=== PATIENT | female | born 1975 | race Caucasian/White ===

== ENCOUNTER 2024-03-27 22:38 | Observation (INO) | payer OTHER ==
--- NOTE | 2024-03-27 23:50 | XRAY ---
CLINICAL HISTORY: dizziness COMPARISON: None. TECHNIQUE: Axial noncontrast CT scan of the brain was performed from the skull base to the high parietal region with coronal and sagittal reformats. One of the following dose reduction techniques were utilized for this exam: Automated exposure control, adjustment of the mA and/or kV according to patient size, use of iterative reconstruction. FINDINGS: The visualized brain parenchyma shows normal appearance. Avilez-white matter differentiation is maintained. No midline shifts or deformity. No intracerebral or extra axial hematoma. Normal size and configuration of the cerebral ventricles. Normal CT appearance of the posterior fossa structures namely the cerebellar hemispheres, brainstem and cerebellar peduncles. The cerebello-pontine angles are clear. The osseous structures in the skull base are unremarkable. No definite calvarium fractures. The scanned paranasal sinuses are clear. IMPRESSION: 1. No significant acute abnormality in plain CT brain at present. 2. Early changes of acute ischemic infarct may sometimes not be detected on a CT scan. If clinically suspicious, MRI with diffusion-weighted imaging is recommended for further evaluation. Electronically Signed by: No Cadena MD. (03/27/2024 23:47:11 EDT)
[2024-03-28 00:01] LABS: Absolute Neutrophil Ct (ANC) 7.87 x10^3/uL (1.56-6.13); BASOPHIL % 0.5 % (0.1-1.2); Basophil (Absolute #) 0.06 x10^3/uL (0.01-0.08); Eosinophil % 1.5 % (0.7-5.8); Eosinophil (Absolute #) 0.18 x10^3/uL (0.04-0.36); Hematocrit 41.7 % (34.1-44.9); Hemoglobin 13.7 g/dL (11.2-15.7); IMMATURE GRAN # 0.04 x10^3u/L (0.001-0.031); IMMATURE GRAN % 0.3 % (0.001-0.429); Lymphocyte (Absolute #) 2.63 x10^3/uL (1.18-3.74); Lymphocytes % 22.6 % (19.3-51.7); Mean Cell Volume 91.2 fL (79.4-94.8); Mean Corpuscular Hgb Concent. 32.9 g/dL (32.2-35.5); Mean Platelet Volume 10.3 fL (9.4-12.3); Monocyte (Absolute #) 0.86 x10^3/uL (0.24-0.86); Monocytes % 7.4 % (4.7-12.5); Neutrophil % 67.7 % (34.0-71.1); Platelet Count 314 x10^3/uL (182-369); Red Blood Count 4.57 x10^6/uL (3.93-5.22); Red Cell Distribution Width 14.5 % (11.7-14.4); White Blood Count 11.6 x10^3/uL (3.98-10.04)
[2024-03-28 00:16] LABS: ALBUMIN 4.3 g/dL (3.5-5.0); ANION GAP 14.3 MEQ/L (5-15); BILIRUBIN,TOTAL 0.6 mg/dL (0.2-1.3); Calcium 9.5 mg/dL (8.4-10.2); Creatinine 1 2.36 mg/dL (0.52-1.04); EST GLOMERULAR FILTRATION RATE 24.8 ML/MIN; MAGNESIUM 2.3 mg/dL (1.6-2.3); Potassium 3.2 mmol/L (3.5-5.1); Total Protein 7.2 g/dL (6.3-8.2)
[2024-03-28] MEDS ORDERED: ANTIVERT 25 MG ONE (01:27)
[2024-03-28] MEDS: ANTIVERT 25 MG PO ONE (01:28)
[2024-03-28] MEDS ORDERED: Sodium Chloride 0.9% 1000 ML 1,000 ML ONE (01:31)
[2024-03-28] MEDS ORDERED: Compazine 10 MG/2 ML ONE (01:31)
[2024-03-28] MEDS: Sodium Chloride 0.9% 1000 ML 1,000 ML IV STA (01:37)
[2024-03-28] MEDS: Compazine 10 MG/2 ML IV ONE (01:38)
--- NOTE | 2024-03-28 01:41 | ERPHSYRPT ---
- History of Present Illness Time Seen by Provider: 03/27/24 22:55 Source: patient Exam Limitations: no limitations Patient Subjective Stated Complaint: pt states she began feeling dizzy around 2200 tonight adn felt like she was going to fall down. states she has beeen fee ling unsteady for the past few days. Triage Nursing Assessment: pt alert and oriented, answers questions approp. pt tearful, cooperative. pt to room per wheelchair and transfers to stretcher per self. respirations nonlabored. skin warm and dry. pupils equal and reactive, no facial droop noted. pt moves all extremities without diff. Physician History: 49 years old female with multiple medical problems presented in the ER with complains of dizziness and getting unsteady for the last couple of hours. Patient reports she was sitting in front of fire., Stood up and started to feel wobbly with feeling as if she was going to fall down. Denies any spinning sensation but weakness all over. Denies any headache., Chest pain palpitations or shortness of breath. No abdominal pain nausea or vomiting reported. Patient reports having similar symptoms in the past but not this severe. Denies any neck pain. No visual disturbance or difficulty speech. Allergies/Adverse Reactions: diltiazem Allergy (Unknown, Verified 03/28/24 01:27) Hx Tetanus, Diphtheria Vaccination/Date Given: Yes Hx Influenza Vaccination/Date Given: No Hx Pneumococcal Vaccination/Date Given: No Immunizations Up to Date: No Travel Risk - International Travel Have you traveled outside of the country in past 3 weeks: No - Emerging Infectious Disease Are you exhibiting symptoms associated with any current EIDs: No - Review of Systems Constitutional: No Symptoms Eyes: No Symptoms Ears, Nose, & Throat: No Symptoms Respiratory: No Symptoms Cardiac: No Symptoms Abdominal/Gastrointestinal: No Symptoms Genitourinary Symptoms: No Symptoms Musculoskeletal: No Symptoms Neurological: Dizziness Psychological: Anxiety Endocrine: No Symptoms Hematologic/Lymphatic: No Symptoms - Past Medical History Cardiac History: Coronary Artery Disease, Hypertension Respiratory History: COPD, Emphysema Endocrine Medical History: Diabetes Type II Musculoskeletal History: Degenerative Disk Disease GI Medical History: Ulcer - Past Surgical History Past Surgical History: Yes Gastrointestinal: Cholecystectomy Other Surgical History: gasterctomy d/t ulcers, uterine ablation, bladder sling - Female History Hx Last Menstrual Period: ablation- approx 5+ yrs Hx Now: No - Social History Smoking Status: Current every day smoker How long have you smoked: 32 Exposure to second hand smoke: No Drug Use: marijuana - Social Determinants of Health Will the patient participate in the screening: Declined to provide - Nursing Vital Signs Nursing Vital Signs: Initial Vital Signs Temperature 97.2 F 03/27/24 22:53 Pulse Rate 71 03/27/24 22:53 Respiratory Rate 18 03/27/24 22:53 Blood Pressure 113/78 03/27/24 22:53 O2 Sat by Pulse Oximetry 97 03/27/24 22:53 Pain Scale Pain Intensity 0 - [place] Coma Scale Best Eye Response (Rakesh): (4) open spontaneously Best Verbal Response (Rakesh): (5) oriented Best Motor Response (Rakesh): (6) obeys commands Rakesh Total: 15 - Physical Exam General Appearance: no apparent distress, alert, anxiety Eye Exam: bilateral eye: normal inspection, PERRL, EOMI Ears, Nose, Throat Exam: normal ENT inspection, TMs normal, pharynx normal, moist mucous membranes Neck Exam: normal inspection, non-tender, supple, full range of motion Respiratory: normal breath sounds, lungs clear Cardiovascular: regular rate/rhythm, normal heart sounds Gastrointestinal: soft, normal bowel sounds, No tenderness Back Exam: normal inspection Extremity Exam: normal inspection, normal range of motion Mental Status: alert, oriented x 3, 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 Exam: normal hearing, normal speech, PERRL Coordination/Gait: normal finger to nose, normal cerebellar function, No normal gait Motor/Sensory: no motor deficit, no sensory deficit, no pronator drift, negative Babinski's sign DTR: bicep (R): 2+, bicep (L): 2+, knee (R): 2+, knee (L): 2+ Skin Exam: normal color SpO2 Interpretation: normal SpO2: 98 O2 Delivery: Room Air - Course EKG Interpreted by Me: RATE (55), Sinus Ck, NORMAL AXIS, NORMAL INTERVALS, NORMAL QRS Ordered Tests: Active Orders 24 hr Category Date Time Status EKG-ER Only STAT Care 03/27/24 23:36 Active IV Insertion STAT Care 03/27/24 23:36 Active Orthostatic Vital Signs STAT Care 03/27/24 23:36 Active POCT Glucose Check ONCE Care 03/27/24 23:36 Active Tele-Health Consult ROUTINE Cons 03/27/24 23:53 Active HEAD WITHOUT CONTRAST [CT] Stat Exams 03/27/24 23:26 Completed CBC W DIFF Stat Lab 03/27/24 23:31 Completed CMP Stat Lab 03/27/24 23:31 Completed MAGNESIUM Stat Lab 03/27/24 23:31 Completed UA W/RFX UR CULTURE Stat Lab 03/27/24 23:36 Ordered Medication Summary Discontinued Medications Generic Name Dose Route Start Last Admin Trade Name Dilip PRN Reason Stop Dose Admin Sodium Chloride 1,000 mls @ 999 mls/hr 03/27/24 23:36 03/28/24 01:37 Sodium Chloride 0.9% 1000 Ml IV 03/28/24 00:36 999 mls/hr .Q1H1M STA Administration Sodium Chloride Confirm 03/28/24 01:31 Sodium Chloride 0.9% 1000 Ml Administered 03/28/24 01:32 Dose 1,000 mls @ ud .ROUTE .STK-MED ONE Meclizine HCl 25 mg 03/28/24 00:24 03/28/24 01:28 Meclizine Hcl 25 Mg Tablet PO 03/28/24 00:25 25 mg STAT ONE Administration Meclizine HCl Confirm 03/28/24 01:27 Meclizine Hcl 25 Mg Tablet Administered 03/28/24 01:28 Dose 25 mg .ROUTE .STK-MED ONE Prochlorperazine Edisylate 5 mg 03/28/24 00:24 03/28/24 01:38 Prochlorperazine Edisylate 10 Mg/2 Ml Vial IV 03/28/24 00:25 5 mg STAT ONE Administration Prochlorperazine Edisylate Confirm 03/28/24 01:31 Prochlorperazine Edisylate 10 Mg/2 Ml Vial Administered 03/28/24 01:32 Dose 10 mg .ROUTE .STK-MED ONE Lab/Rad Data: Laboratory Result Diagrams 03/27/24 23:31 03/27/24 23:31 Laboratory Results 03/27/24 03/27/24 Range/Units 23:31 23:31 WBC 11.6 H (3.98-10.04) x10^3/uL RBC 4.57 (3.93-5.22) x10^6/uL Hgb 13.7 (11.2-15.7) g/dL Hct 41.7 (34.1-44.9) % MCV 91.2 (79.4-94.8) fL MCH 30.0 (25.6-32.2) pg MCHC 32.9 (32.2-35.5) g/dL RDW 14.5 H (11.7-14.4) % Plt Count 314 (182-369) x10^3/uL MPV 10.3 (9.4-12.3) fL Gran % 67.7 (34.0-71.1) % Immature Gran % (Auto) 0.3 (0.001-0.429) % Nucleat RBC Rel Count 0.0 (0.00-0.2) % Eos # (Auto) 0.18 (0.04-0.36) x10^3/uL Immature Gran # (Auto) 0.04 H (0.001-0.031) x10^3u/L Absolute Lymphs (auto) 2.63 (1.18-3.74) x10^3/uL Absolute Monos (auto) 0.86 (0.24-0.86) x10^3/uL Absolute Nucleated RBC 0.00 (0.00-0.012) x10^3u/L Lymphocytes % 22.6 (19.3-51.7) % Monocytes % 7.4 (4.7-12.5) % Eosinophils % 1.5 (0.7-5.8) % Basophils % 0.5 (0.1-1.2) % Absolute Granulocytes 7.87 H (1.56-6.13) x10^3/uL Basophils # 0.06 (0.01-0.08) x10^3/uL Sodium 140 (135-145) mmol/L Potassium 3.2 L (3.5-5.1) mmol/L Chloride 100 (98-107) mmol/L Carbon Dioxide 29 (22-30) mmol/L Anion Gap 14.3 (5-15) MEQ/L BUN 34 H (7-17) mg/dL Creatinine 2.36 H (0.52-1.04) mg/dL Estimated GFR 24.8 ML/MIN Glucose 119 H (74-106) mg/dL Calcium 9.5 (8.4-10.2) mg/dL Magnesium 2.3 (1.6-2.3) mg/dL Total Bilirubin 0.60 (0.2-1.3) mg/dL AST 26 (14-36) U/L ALT 27 (0-35) U/L Alkaline Phosphatase 120 (38-126) U/L Serum Total Protein 7.2 (6.3-8.2) g/dL Albumin 4.3 (3.5-5.0) g/dL - Progress Progress: improved, re-examined Progress Note: 03/28/24 01:44 49 years old with multiple medical problems is evaluated in the ER for sudden onset dizziness and getting wobbly. She is made stroke activated. CT head is negative for any acute findings. Prompt [facility] neurology consult is obtained who does not think patient has active neuro event but more of a labyrinthitis, recommended meclizine/Compazine along with fluids. Recommended CTAs head and neck to rule out major vessel occlusions and if negative patient can be discharged home safely. Her baseline workup showed normal white count, chemistries with a creatinine of 2.3, no previous comparison available here but 1 done out side showed a creatinine of 0.7 last year. Chest x-ray is negative for any acute cardiopulmonary findings reviewed by me, official report is pending. Patient has never been to this hospital before. I believe part of patient's symptoms are secondary to acute renal failure. She does take diuretics as well. Orthostatics are negative. Patient cannot have CTA with low GFR. Patient discussed with Dr. Esther miller, reviewed history, workup, agreed with admission, IV hydration and if kidney functions improve can have CTA done tomorrow and if not and patient is still symptomatic can have MRI. I have shared the results of workup with patient and family and plan of admission which they understand and agree. 03/28/24 01:46 Counseled pt/family regarding: lab results, diagnosis, need for follow-up, rad results Medical Desision Making - Independent Historian Additional History obtained from: Spouse - Discussion of managment Care discussed with:: specialist ( hospitalist and Dr. Dutton neurology) Reviewed:: Test results, Need for additional workup Agreed on:: Treatment plan, place in obs Will see patient: in hospital - Diagnostic Testing Diagnostic test were ordered, analyzed, and reviewed by me: Yes Radiological Interpretation: Interpreted by me, Reviewed by me - Risk of complications The pt has a mod risk of morbidity or mortality based on: Need for prescription drug management The pt has a high risk of morbidity or mortality based on: Decision regarding hospitilization or escalation of hosp level of care - Departure Departure Disposition: Observation Clinical Impression: Dizziness, Acute renal failure Condition: Stable Critical Care Time: No Referrals: DOCTOR,NO FAMILY [Primary Care Provider] - Follow up/PCP as directed
[2024-03-28 02:47] LABS: Appearance Clear (Clear); Bilirubin Negative (Negative); Blood Negative (Negative); Epithelial Cells Few /HPF (None Seen); Glucose, Urine Negative (Negative); Ketones Negative (Negative); Leukocyte Esterase Small (Negative); Nitrite Negative (Negative); Ph 5.5 (4.6-8.0); Protein,Urine Dip Trace (Negative); RBC 0-2 /HPF (0-5); Specific Gravity 1.015 (1.005-1.030); Urobilinogen 0.2 mg/dL (0.2)
[2024-03-28 02:57] LABS: Bacteria Few /HPF (None Seen)
[2024-03-28] MEDS ORDERED: TYLENOL 325 MG PO PRN (03:31)
[2024-03-28] MEDS ORDERED: ANTIVERT 25 MG PO PRN (03:33)
[2024-03-28] MEDS: Sodium Chloride 0.9% 1000 ML 1,000 ML IV SCH (03:55)
[2024-03-28 06:03] LABS: ANION GAP 13.7 MEQ/L (5-15); Calcium 8.8 mg/dL (8.4-10.2); Creatinine 1 2.08 mg/dL (0.52-1.04); EST GLOMERULAR FILTRATION RATE 28.9 ML/MIN; Potassium 3.3 mmol/L (3.5-5.1)
--- NOTE | 2024-03-28 06:31 | PCM.HP ---
History of Present Illness - Chief Complaint Chief Complaint: vertigo Date: 03/28/24 History of Present Illness: is a 49 year old female with h/o HTN, back pain, and chronic angina, who presents with dizziness and vertigo. Patient noted sudden onset Sunday ev ening of severe dizziness and "wobbling" upon sitting up, "like I'm really drunk" without drinking anything. Associated with vertigo and nausea, worse with position. Denies dysarthria, diplopia, or ataxic gait. Denies ear fullness or hearing changes, or recent URI symptoms. No fever or headache. No history of renal disease. - Review of Systems All Other Systems: Reviewed and Negative Medications & Allergies Home Medications: Home Medication List Aspirin EC 81 mg [Ecotrin 81 mg] 81 mg PO DAILY 03/28/24 [History Confirmed 03/28/24] Atorvastatin Calcium [Lipitor] 80 mg PO DAILY 03/28/24 [History Confirmed 03/28/24] Budesonide/Formoterol Fumarate [Budesonide-Formoterol 160-4.5] 1 inh IH BID 03/28/24 [History Confirmed 03/28/24] Buspirone HCl 5 mg [Buspar 5 mg] 5 mg PO TID 03/28/24 [History Confirmed 03/28/24] Cyclobenzaprine HCl 5 mg PO TIDPRN PRN 03/28/24 [History Confirmed 03/28/24] Furosemide 40 mg [Lasix 40 MG] 40 mg PO BID 03/28/24 [History Confirmed 03/28/24] Isosorbide Mononitrate 60 mg [Imdur 60MG] 120 mg PO DAILY 03/28/24 [History Confirmed 03/28/24] Losartan/Hydrochlorothiazide [Losartan-Hctz 100-12.5 mg Tab] 1 each PO DAILY 03/28/24 [History Confirmed 03/28/24] Metoprolol Succinate 25 mg Xl* [Toprol-Xl 25MG Tablets] 25 mg PO DAILY 03/28/24 [History Confirmed 03/28/24] Mirtazapine 15 mg PO HS 03/28/24 [History Confirmed 03/28/24] Nitroglycerin 0.4 mg Tablet [Nitrostat 0.4 MG Tablet] 0.4 mg SL UD PRN 03/28/24 [History Confirmed 03/28/24] PANTOPRAZOLE 40 mg Tablet [Protonix 40MG Tablet] 40 mg PO QAM 03/28/24 [History Confirmed 03/28/24] Prazosin HCl 1 mg PO HS 03/28/24 [History Confirmed 03/28/24] Pregabalin [Lyrica 150Mg] 150 mg PO BID 03/28/24 [History Confirmed 03/28/24] Ranolazine [Ranolazine ER] 1,000 mg PO BID 03/28/24 [History Confirmed 03/28/24] Semaglutide [Ozempic] 0.5 mg SQ WEEKLY 03/28/24 [History Confirmed 03/28/24] buPROPion HCL [Bupropion Xl] 300 mg PO DAILY 03/28/24 [History Confirmed 03/28/24] Allergies/Adverse Reactions: Allergies Allergy/AdvReac Type Severity Reaction Status Date / Time diltiazem Allergy Unknown Verified 03/28/24 01:27 - Past Medical History Past Medical History: Yes Neurological History: TIA ENT History: No Pertinent History Cardiac History: Coronary Artery Disease, Hypertension Respiratory History: Asthma, Bronchitis, COPD, Emphysema Endocrine Medical History: Diabetes Type II Musculoskelatal History: Degenerative Disk Disease, Other GI Medical History: Ulcer History: No Pertinent History Pyscho-Social History: Anxiety, Depression Reproductive Disorders: Endometriosis Comment: carpal tunnel bilateral wrists - Female History Are you now?: No - Past Surgical History Past Surgical History: Yes Neuro Surgical History: No Pertinent History Cardiac History: Cardiac Catheterization Respiratory Surgery: No Pertinent History GI Surgical History: Cholecystectomy Genitourinary Surgical Hx: Other Musculskeletal Surgical Hx: No Pertinent History Female Surgical History: No Pertinent History Other Surgical History: gasterctomy d/t ulcers, uterine ablation, bladder sling - Social History Smoking Status: Current every day smoker How long have you smoked: 32 years Exposure to second hand smoke: No Alcohol: None, Rarely Drug Use: marijuana - Social Determinants of Health Will the patient participate in the screening: Yes Do you worry about a steady place to live?: No Do you have any problems with any of the following?: No known problems In the past 12 months,have you had to go without utilities?: No Have you or anyone in your house had to go without enough: No Transportation Issues: No Has anyone in your support network made you feel unsafe?: No Does the patient want assistance with any of the above?: No - Physical Exam Vital Signs: Vital Signs - 24 hr Temp Pulse Resp BP BP Pulse Ox 03/28/24 02:16 97.4 F 64 18 109/56 95 03/28/24 01:48 98 03/28/24 01:09 60 16 112/77 98 03/28/24 01:07 122/81 96 03/28/24 01:06 64 112/71 97 03/28/24 01:00 58 L 92/64 97 03/28/24 00:30 67 18 94/66 96 03/27/24 22:53 97.2 F 71 18 113/78 97 General Appearance: no apparent distress Neurologic Exam: alert, oriented x 3, No sensation nml, No facial droop, No aphasia, No dysarthria, No abnormal gait Respiratory Exam: normal breath sounds, No respiratory distress, No accessory muscle use Cardiovascular Exam: regular rate/rhythm, normal heart sounds, No edema Gastrointestinal/Abdomen Exam: No tenderness, No distention Results - Labs Lab/Micro Results: Lab Results-Last 24 Hours 03/27/24 03/27/24 03/28/24 Range/Units 23:31 23:31 01:59 WBC 11.6 H (3.98-10.04) x10^3/uL RBC 4.57 (3.93-5.22) x10^6/uL Hgb 13.7 (11.2-15.7) g/dL Hct 41.7 (34.1-44.9) % MCV 91.2 (79.4-94.8) fL MCH 30.0 (25.6-32.2) pg MCHC 32.9 (32.2-35.5) g/dL RDW 14.5 H (11.7-14.4) % Plt Count 314 (182-369) x10^3/uL MPV 10.3 (9.4-12.3) fL Gran % 67.7 (34.0-71.1) % Immature Gran % (Auto) 0.3 (0.001-0.429) % Nucleat RBC Rel Count 0.0 (0.00-0.2) % Eos # (Auto) 0.18 (0.04-0.36) x10^3/uL Immature Gran # (Auto) 0.04 H (0.001-0.031) x10^3u/L Absolute Lymphs (auto) 2.63 (1.18-3.74) x10^3/uL Absolute Monos (auto) 0.86 (0.24-0.86) x10^3/uL Absolute Nucleated RBC 0.00 (0.00-0.012) x10^3u/L Lymphocytes % 22.6 (19.3-51.7) % Monocytes % 7.4 (4.7-12.5) % Eosinophils % 1.5 (0.7-5.8) % Basophils % 0.5 (0.1-1.2) % Absolute Granulocytes 7.87 H (1.56-6.13) x10^3/uL Basophils # 0.06 (0.01-0.08) x10^3/uL Sodium 140 (135-145) mmol/L Potassium 3.2 L (3.5-5.1) mmol/L Chloride 100 (98-107) mmol/L Carbon Dioxide 29 (22-30) mmol/L Anion Gap 14.3 (5-15) MEQ/L BUN 34 H (7-17) mg/dL Creatinine 2.36 H (0.52-1.04) mg/dL Estimated GFR 24.8 ML/MIN Glucose 119 H (74-106) mg/dL Calcium 9.5 (8.4-10.2) mg/dL Magnesium 2.3 (1.6-2.3) mg/dL Total Bilirubin 0.60 (0.2-1.3) mg/dL AST 26 (14-36) U/L ALT 27 (0-35) U/L Alkaline Phosphatase 120 (38-126) U/L Serum Total Protein 7.2 (6.3-8.2) g/dL Albumin 4.3 (3.5-5.0) g/dL Urine Color Yellow (Yellow) Urine Appearance Clear (Clear) Urine pH 5.5 (4.6-8.0) Ur Specific [place] 1.015 (1.005-1.030) Urine Protein Trace A (Negative) Urine Glucose (UA) Negative (Negative) mg/dL Urine Ketones Negative (Negative) Urine Blood Negative (Negative) Urine Nitrite Negative (Negative) Urine Bilirubin Negative (Negative) Urine Urobilinogen 0.2 (0.2) mg/dL Ur Leukocyte Esterase Small A (Negative) U Hyaline Cast (Auto) 11-20 (0-2) /LPF Urine Microscopic RBC 0-2 (0-5) /HPF Urine Microscopic WBC 6-10 A (0-5) /HPF Ur Epithelial Cells Few (None Seen) /HPF Urine Bacteria Few A (None Seen) /HPF Urine Culture Reflexed YES (NO) 03/28/24 Range/Units 05:04 WBC (3.98-10.04) x10^3/uL RBC (3.93-5.22) x10^6/uL Hgb (11.2-15.7) g/dL Hct (34.1-44.9) % MCV (79.4-94.8) fL MCH (25.6-32.2) pg MCHC (32.2-35.5) g/dL RDW (11.7-14.4) % Plt Count (182-369) x10^3/uL MPV (9.4-12.3) fL Gran % (34.0-71.1) % Immature Gran % (Auto) (0.001-0.429) % Nucleat RBC Rel Count (0.00-0.2) % Eos # (Auto) (0.04-0.36) x10^3/uL Immature Gran # (Auto) (0.001-0.031) x10^3u/L Absolute Lymphs (auto) (1.18-3.74) x10^3/uL Absolute Monos (auto) (0.24-0.86) x10^3/uL Absolute Nucleated RBC (0.00-0.012) x10^3u/L Lymphocytes % (19.3-51.7) % Monocytes % (4.7-12.5) % Eosinophils % (0.7-5.8) % Basophils % (0.1-1.2) % Absolute Granulocytes (1.56-6.13) x10^3/uL Basophils # (0.01-0.08) x10^3/uL Sodium 140 (135-145) mmol/L Potassium 3.3 L (3.5-5.1) mmol/L Chloride 101 (98-107) mmol/L Carbon Dioxide 29 (22-30) mmol/L Anion Gap 13.7 (5-15) MEQ/L BUN 36 H (7-17) mg/dL Creatinine 2.08 H (0.52-1.04) mg/dL Estimated GFR 28.9 ML/MIN Glucose 64 L (74-106) mg/dL Calcium 8.8 (8.4-10.2) mg/dL Magnesium (1.6-2.3) mg/dL Total Bilirubin (0.2-1.3) mg/dL AST (14-36) U/L ALT (0-35) U/L Alkaline Phosphatase (38-126) U/L Serum Total Protein (6.3-8.2) g/dL Albumin (3.5-5.0) g/dL Urine Color (Yellow) Urine Appearance (Clear) Urine pH (4.6-8.0) Ur Specific [place] (1.005-1.030) Urine Protein (Negative) Urine Glucose (UA) (Negative) mg/dL Urine Ketones (Negative) Urine Blood (Negative) Urine Nitrite (Negative) Urine Bilirubin (Negative) Urine Urobilinogen (0.2) mg/dL Ur Leukocyte Esterase (Negative) U Hyaline Cast (Auto) (0-2) /LPF Urine Microscopic RBC (0-5) /HPF Urine Microscopic WBC (0-5) /HPF Ur Epithelial Cells (None Seen) /HPF Urine Bacteria (None Seen) /HPF Urine Culture Reflexed (NO) - Radiology Impressions Radiology Exams & Impressions: Radiology Procedures Category Date Time Status CHEST 1 VIEW (PORTABLE) Stat Exams 03/27/24 00:11 Taken HEAD WITHOUT CONTRAST [CT] Stat Exams 03/27/24 23:26 Completed CXR reviewed - no infiltrate, effusion, or edema CT Head - no acute abnormality - Other Procedures and Tests Respiratory Therapy 03/28/24 05:54 Respiratory MDI BID Assessment/Plan (1) Acute renal failure Current Visit: Yes Status: Acute Assessment & Plan: 49 y/o F with h/o HTN, chronic angina, and depression, here with vertigo, found to have impaired renal function. ## Acute vs chronic kidney disease - noted on admission labs to have Cr 2.4. No prior labs available here, and no known h/o renal disease per patient. - given IV fluids in ED - continue NS at 100 ml/hr - repeat BMP in AM - reaching out to [facility] for patient's prior records to see baseline Cr - hold home losartan-HCTZ and lasix until establish baseline renal function. ## Vertigo - neurology consulted, feels likely to be peripheral cause, given positional nature, lack of [employer] signs. Neuro recommended CTA head & neck to rule out vertebrobasilar insufficiency, but unable to do so with her renal function. Acute onset and positional nature are consistent with BPPV as cause, although cannot exclude labyrinthitis - PRN meclizine - if after fluids, Cr improves, can obtain CTA - if CTA negative, neuro recommended ENT evaluation - PT referral for Louise maneuvers - if unable to get CTA, consider MRI/MRA to r/o vertebro-basilar insufficiency ## Hypertension - BP controlled. - hold home losartan-HCTZ and Lasix due to renal insufficency ## Chronic angina - currently controlled. - continue home Ranexa 1000 BID, Imdur 60 daily, Toprol XL 25, Atorvastatin 80 ## depression - continue home Buproprion XL 300 daily, Remeron 15 qHS, and Buspar 5 TID Code status: Full code Prophylaxis: Heparin SQ Dispo: Place in observation, expect discharge to home Telemedicine Encounter - Telemedicine Encounter Telemedicine Encounter: "The entirety of this encounter was performed via Telemedicine" This visit was performed using real-time audio and video connection between my location and thepatients locationwith the assistance of a surrogateat the patients location. Written or verbal consent was obtained from the patient/guardian to perform this visit usingADAPTIXcine technology. Any patient questions regarding the telemedicine interaction were answered.
[2024-03-28] MEDS ORDERED: Cyclobenzaprine 10 MG PO PRN (07:12)
[2024-03-28] MEDS: Advair Hfa 115/21 Common canister IH SCH (07:24)
[2024-03-28] MEDS ORDERED: MEDICATION INTERVENTION MC SCH (07:30)
--- NOTE | 2024-03-28 08:38 | XRAY ---
Indication: Dizziness. Comparison: None Portable chest hyperinflated and clear. Heart not enlarged. Bony thorax intact. Impression: Nonacute hyperinflated chest.
[2024-03-28] MEDS ORDERED: NON-FORMULARY ITEM (Budesonide/Formoterol Fumarate [Budesonide-Formoterol 160-4.5] 10.2 GM IH SCH (10:00)
[2024-03-28] MEDS: HEPARIN 5000 UNITS/0.5 ML (HIGH RISK MED) SQ SCH (10:12)
[2024-03-28] MEDS: ROCEPHIN 1 GM / 100 ML NaCl 1 GM/100 ML IVPB IV SCH (10:12)
[2024-03-28] MEDS: ZOCOR 20MG PO SCH (10:13)
[2024-03-28] MEDS: BUSPAR 5 MG PO SCH (10:13)
[2024-03-28] MEDS: Protonix 40MG Tablet PO SCH (10:13)
[2024-03-28] MEDS: ECOTRIN 81 MG PO SCH (10:13)
[2024-03-28] MEDS: Toprol-Xl 25MG Tablets PO SCH (10:13)
[2024-03-28] MEDS: Ranexa 500 MG PO SCH (10:13)
[2024-03-28] MEDS: LYRICA 150MG PO SCH (10:13)
[2024-03-28] MEDS: Imdur 60MG PO SCH (10:13)
[2024-03-28] MEDS: Klor Con PO SCH (10:13)
[2024-03-28] MEDS: Wellbutrin XL 150 MG PO SCH (10:14)
[2024-03-28 13:34] LABS: Potassium 3.5 mmol/L (3.5-5.1)
[2024-03-28] MEDS ORDERED: NON-FORMULARY ITEM (Prazosin Hcl [Prazosin Hcl] 1 MG Capsule) PO SCH (22:00)
[2024-03-28] MEDS: MIRTAZAPINE PO SCH (22:52)
[2024-03-29 04:05] VITALS: PULSE 67
[2024-03-29 07:09] VITALS: BP 108/54; RESP 19; TEMP 97.1
[2024-03-29 07:36] LABS: Hematocrit 34.5 % (34.1-44.9); Hemoglobin 11.4 g/dL (11.2-15.7); Mean Cell Volume 92.5 fL (79.4-94.8); Mean Corpuscular Hemoglobin 30.6 pg (25.6-32.2); Mean Platelet Volume 10.9 fL (9.4-12.3); Platelet Count 286 x10^3/uL (182-369); Red Blood Count 3.73 x10^6/uL (3.93-5.22); Red Cell Distribution Width 14.8 % (11.7-14.4); White Blood Count 6.8 x10^3/uL (3.98-10.04)
[2024-03-29 07:43] LABS: ANION GAP 10.9 MEQ/L (5-15); BILIRUBIN,TOTAL 0.3 mg/dL (0.2-1.3); Calcium 8.5 mg/dL (8.4-10.2); Creatinine 1 1.1 mg/dL (0.52-1.04); Potassium 4.5 mmol/L (3.5-5.1); Total Protein 5.5 g/dL (6.3-8.2)
[2024-03-29 08:29] VITALS: O2SAT 97
--- NOTE | 2024-03-29 09:11 | PCM.DS ---
Discharge Summary Date of Admission: 03/28/24 02:08 Date of Discharge: 03/29/24 Admitting Physician: MATT ROLON MD Consults: Consults on Case 03/27/24 23:53 Tele-Health Consult ROUTINE Primary Care Provider: NO FAMILY DOCTOR Allergies Allergies diltiazem Allergy (Unknown, Verified 03/28/24 01:27) Hospital Summary - Hospital Course Hospital Course: 03/29/24 is a 49 year old female with h/o TIA, CAD, HTN, Asthma, Bronchitis, COPD, emphysema, type II DM, DJD, chronic back pain, anxiety, depression, carpal tunnel, and chronic angina. She presented on 03/28/24 to the ER with dizziness and vertigo. Patient noted sudden onset Sunday evening of severe dizziness and "wobbling" upon sitting up, "like I'm really drunk" without drinking anything. Associated with vertigo and nausea, worse with position. Denied dysarthria, diplopia, or ataxic gait. Denies ear fullness or hearing changes, or recent URI symptoms. No fever or headache. No history of renal disease. Pt was started on IVF and IV antibiotics for a UTI. Antibiotics stopped today as UC negative. MAGNUS improved with IV fluids. Pt admits to not eating and drinking well at home d/t taking Ozempic. Educated pt on the importance of eating small meals throughout the days and drinking plenty of water to stay hydrated. Hypokalemia resolved. She states she feels better and wants to leave today as her daughter has birthday republican she would like to attend. She denies any further concerns at this time. Advised she will need to f/u OP with PCP for repeat labs. - Vitals & Intake/Output Vital Signs: Vital Signs Temperature 97.1 F 03/29/24 07:08 Pulse Rate 67 03/29/24 08:28 Respiratory Rate 19 03/29/24 08:28 Blood Pressure 108/54 03/29/24 07:08 O2 Sat by Pulse Oximetry 97 03/29/24 08:28 Intake & Output: Intake & Output 03/26/24 03/27/24 03/28/24 03/29/24 11:59 11:59 11:59 11:59 Intake Total 480 3820 Balance 480 3820 Weight 97.4 kg - Lab Result Diagrams: 03/29/24 05:15 10/12/24 05:15 Lab Results-Last 24 Hrs: Lab Results-Last 24 Hours 03/28/24 03/29/24 03/29/24 Range/Units 13:20 05:15 05:15 WBC 6.8 (3.98-10.04) x10^3/uL RBC 3.73 L (3.93-5.22) x10^6/uL Hgb 11.4 (11.2-15.7) g/dL Hct 34.5 (34.1-44.9) % MCV 92.5 (79.4-94.8) fL MCH 30.6 (25.6-32.2) pg MCHC 33.0 (32.2-35.5) g/dL RDW 14.8 H (11.7-14.4) % Plt Count 286 (182-369) x10^3/uL MPV 10.9 (9.4-12.3) fL Sodium (135-145) mmol/L Potassium 3.5 (3.5-5.1) mmol/L Chloride (98-107) mmol/L Carbon Dioxide (22-30) mmol/L Anion Gap (5-15) MEQ/L BUN (7-17) mg/dL Creatinine (0.52-1.04) mg/dL Estimated GFR ML/MIN Glucose (74-106) mg/dL Calcium (8.4-10.2) mg/dL Magnesium 2.0 2.2 (1.6-2.3) mg/dL Total Bilirubin (0.2-1.3) mg/dL AST (14-36) U/L ALT (0-35) U/L Alkaline Phosphatase (38-126) U/L Serum Total Protein (6.3-8.2) g/dL Albumin (3.5-5.0) g/dL 03/29/24 Range/Units 05:15 WBC (3.98-10.04) x10^3/uL RBC (3.93-5.22) x10^6/uL Hgb (11.2-15.7) g/dL Hct (34.1-44.9) % MCV (79.4-94.8) fL MCH (25.6-32.2) pg MCHC (32.2-35.5) g/dL RDW (11.7-14.4) % Plt Count (182-369) x10^3/uL MPV (9.4-12.3) fL Sodium 143 (135-145) mmol/L Potassium 4.5 D (3.5-5.1) mmol/L Chloride 111 H (98-107) mmol/L Carbon Dioxide 25 (22-30) mmol/L Anion Gap 10.9 (5-15) MEQ/L BUN 25 H (7-17) mg/dL Creatinine 1.10 H (0.52-1.04) mg/dL Estimated GFR 62.0 ML/MIN Glucose 91 (74-106) mg/dL Calcium 8.5 (8.4-10.2) mg/dL Magnesium (1.6-2.3) mg/dL Total Bilirubin 0.30 (0.2-1.3) mg/dL AST 18 (14-36) U/L ALT 18 (0-35) U/L Alkaline Phosphatase 98 (38-126) U/L Serum Total Protein 5.5 L (6.3-8.2) g/dL Albumin 3.0 L (3.5-5.0) g/dL Micro Results-Entire Visit: Microbiology 03/28/24 01:59 Urine Culture - Final Urine, Void <10K NORMAL SKIN HARRIETT PROBABLE SKIN CONTAMINANT - Radiology Exams Ordered Rad Exams-Entire Visit: Radiology Procedures Category Date Time Status HEAD WITHOUT CONTRAST [CT] Stat Exams 03/27/24 23:26 Completed - Procedures and Test Procedures and Tests throughout Hospitalization: Therapy Orders & Screens 03/28/24 03:10 RT Screen per Nursing Assess ONCE Comment: Protocol Order Physician Instructions: Greater than 3 points order RT Admission Screen Reason For Exam: Triggered on Admission Diagnosis: acute renal failure, dizziness Diagnosis: acute renal failure, dizziness Pneumonia: No Home O2: No Asthma: Yes CHF: No Home CPAP/BIPAP: No Home Nebs/MDI: Yes Total Points: 9 Smoking Cessation Education ONCE Comment: Diagnosis: acute renal failure, dizziness Smoking Status: Current every day smoker How long have you smoked: 32 years Approximately how many cigarettes per day: 8-10 cigarettes/day Do you dip or chew tobacco: No 03/28/24 05:54 Respiratory MDI BID Comment: Diagnosis: acute renal failure, dizziness 03/28/24 07:27 Respiratory Therapy Assessment DAILY Comment: Diagnosis: vertigo Discharge Exam General Appearance: no apparent distress, alert, obese Neurologic Exam: alert, oriented x 3, cooperative, normal mood/affect, nml cerebellar function, sensation nml, No motor deficits Eye Exam: PERRL, EOMI, eyes nml inspection Ears, Nose, Throat Exam: normal ENT inspection, pharynx normal, moist mucous mem branes Neck Exam: normal inspection, non-tender, supple, full range of motion Respiratory Exam: normal breath sounds, lungs clear, No respiratory distress Cardiovascular Exam: regular rate/rhythm, normal heart sounds Gastrointestinal/Abdomen Exam: soft, No tenderness, No mass Pelvic Exam: deferred Rectal Exam: deferred Back Exam: normal inspection, normal range of motion, No CVA tenderness, No vertebral tenderness Extremity Exam: normal inspection, normal range of motion Skin Exam: normal color, warm, dry Final Diagnosis/Problem List - Final Discharge Diagnosis/Problem (1) Acute renal failure Current Visit: Yes Status: Acute Assessment & Plan: - 2:2 Ozempic and not eating/ drinking well- education provided - IVF - Creat 1.10- improved since admission- unknown baseline. (2) Dizziness Current Visit: Yes Status: Resolved Assessment & Plan: - Resolved since admission - IVF - 2:2 dehydration Code(s): R42 - DIZZINESS AND GIDDINESS (3) Obesity (BMI 30-39.9) Current Visit: Yes Status: Chronic Assessment & Plan: - Advised ADA diet and exercise control. Code(s): E66.9 - OBESITY, UNSPECIFIED (4) HTN (hypertension) Current Visit: Yes Status: Chronic Assessment & Plan: - BP controlled - Continue home meds Code(s): I10 - ESSENTIAL (PRIMARY) HYPERTENSION (5) Anxiety and depression Current Visit: Yes Status: Chronic Assessment & Plan: - Continue home meds Code(s): F41.9 - ANXIETY DISORDER, UNSPECIFIED; F32.A - DEPRESSION, UNSPECIFIED (6) Hyperlipidemia Current Visit: Yes Status: Chronic Assessment & Plan: - continue statin Code(s): E78.5 - HYPERLIPIDEMIA, UNSPECIFIED (7) GERD (gastroesophageal reflux disease) Current Visit: Yes Status: Chronic Assessment & Plan: - Continue Protonix Code(s): K21.9 - GASTRO-ESOPHAGEAL REFLUX DISEASE WITHOUT ESOPHAGITIS (8) Type II diabetes mellitus Current Visit: Yes Status: Chronic Assessment & Plan: - Ozempic held IP - Advised to eat small meals throughout the day and drink plenety of water to prevent dehydration. - No current A1C to review - F/U with PCP OP (9) UTI (urinary tract infection) Current Visit: Yes Status: Resolved Assessment & Plan: - UC negative- probable skin contaminant - IV antibiotics stopped. - Pt reports no sxs. Code(s): N39.0 - URINARY TRACT INFECTION, SITE NOT SPECIFIED - Discharge Discharge Date: 03/29/24 Disposition: Home, Self-Care Condition: Stable Prescriptions: Continue Prazosin HCl 1 mg PO HS Mirtazapine 15 mg PO HS Semaglutide [Ozempic] 0.5 mg SQ WEEKLY buPROPion HCL [Bupropion Xl] 300 mg PO DAILY Isosorbide Mononitrate 60 mg [Imdur 60MG] 120 mg PO DAILY Nitroglycerin 0.4 mg Tablet [Nitrostat 0.4 MG Tablet] 0.4 mg SL UD PRN PRN Reason: Chest Pain Buspirone HCl 5 mg [Buspar 5 mg] 5 mg PO TID Aspirin EC 81 mg [Ecotrin 81 mg] 81 mg PO DAILY Pregabalin [Lyrica 150Mg] 150 mg PO BID PANTOPRAZOLE 40 mg Tablet [Protonix 40MG Tablet] 40 mg PO QAM Furosemide 40 mg [Lasix 40 MG] 40 mg PO BID Cyclobenzaprine HCl 5 mg PO TIDPRN PRN PRN Reason: Muscle Spasms/Pain Metoprolol Succinate 25 mg Xl* [Toprol-Xl 25MG Tablets] 25 mg PO DAILY Atorvastatin Calcium [Lipitor] 80 mg PO DAILY Ranolazine [Ranolazine ER] 1,000 mg PO BID Losartan/Hydrochlorothiazide [Losartan-Hctz 100-12.5 mg Tab] 1 each PO DAILY Budesonide/Formoterol Fumarate [Budesonide-Formoterol 160-4.5] 1 inh IH BID Instructions: Why Water Is Important to Health, Dehydration, Adult ED Follow up with: DOCTOR,NO FAMILY [Primary Care Provider] -
== END 2024-03-29 09:59 | disposition home or self-care (01) ==
LOC: ED 22:38 → MED SURG 03-28 02:08
PROVIDERS: ADMIT Internal Medicine; ATTEND Internal Medicine
DX: N17.9 Acute kidney failure, unspecified (principal); I10 Essential (primary) hypertension; R42 Dizziness and giddiness; I25.10 Atherosclerotic heart disease of native coronary artery without angina pectoris; J44.9 Chronic obstructive pulmonary disease, unspecified; E11.9 Type 2 diabetes mellitus without complications; F17.200 Nicotine dependence, unspecified, uncomplicated; R26.2 Difficulty in walking, not elsewhere classified; R11.0 Nausea; D64.9 Anemia, unspecified; E66.9 Obesity, unspecified; F41.9 Anxiety disorder, unspecified; F32.A Depression, unspecified; E78.5 Hyperlipidemia, unspecified; K21.9 Gastro-esophageal reflux disease without esophagitis; N39.0 Urinary tract infection, site not specified; Z79.899 Other long term (current) drug therapy
CPT/HCPCS: 36000; 36415; 70450; 71045; 80048; 80053; 81001; 83735; 84132; 85025; 85027; 87086; 93005; 94640; 94760; 96374; 99284; G0378; Q3014; J0696; J1644; A9270-GY

== ENCOUNTER 2024-04-21 11:19 | Emergency (ER) | payer OTHER ==
--- NOTE | 2024-04-21 11:38 | ERPHSYRPT ---
- History of Present Illness Time Seen by Provider: 04/21/24 11:38 Source: patient Exam Limitations: no limitations Physician History: This is an obese 49-year-old white female patient who presents to the emergency department with right flank pain that came on suddenly yesterday. The pain persisted this morning. The patient denies chest pain. She denies abdominal pain. She denies shortness of breath. She has not had a fever. She denies urgency, frequency and dysuria. Patient is diabetic, has a history of gastroesophageal reflux disease, anxiety/depression, hyperlipidemia and hypertension. Patient states she has a history of renal failure. On 03/29/2024 the patient's GFR was approximately 62 Timing/Duration: yesterday Method of Injury: other (No injury) Quality: aching (Right flank) Severity of Pain-Max: mild (To moderate) Severity of Pain-Current: mild (To moderate) Modifying Factors: Improves With: nothing Associated Symptoms: denies symptoms Previous symptoms: no prior history, no recent treatment Allergies/Adverse Reactions: diltiazem Allergy (Unknown, Verified 04/21/24 12:19) Home Medications: Aspirin EC 81 mg [Ecotrin 81 mg] 81 mg PO DAILY 03/28/24 [History] Atorvastatin Calcium [Lipitor] 80 mg PO DAILY 03/28/24 [History] Budesonide/Formoterol Fumarate [Budesonide-Formoterol 160-4.5] 1 inh IH BID 03/28/24 [History] Buspirone HCl 5 mg [Buspar 5 mg] 5 mg PO TID 03/28/24 [History] Cyclobenzaprine HCl 5 mg PO TIDPRN PRN 03/28/24 [History] Furosemide 40 mg [Lasix 40 MG] 40 mg PO BID 03/28/24 [History] Isosorbide Mononitrate 60 mg [Imdur 60MG] 120 mg PO DAILY 03/28/24 [History] Losartan/Hydrochlorothiazide [Losartan-Hctz 100-12.5 mg Tab] 1 each PO DAILY 03/28/24 [History] Metoprolol Succinate 25 mg Xl* [Toprol-Xl 25MG Tablets] 25 mg PO DAILY 03/28/24 [History] Mirtazapine 15 mg PO HS 03/28/24 [History] Nitroglycerin 0.4 mg Tablet [Nitrostat 0.4 MG Tablet] 0.4 mg SL UD PRN 03/28/24 [History] PANTOPRAZOLE 40 mg Tablet [Protonix 40MG Tablet] 40 mg PO QAM 03/28/24 [History] Prazosin HCl 1 mg PO HS 03/28/24 [History] Pregabalin [Lyrica 150Mg] 150 mg PO BID 03/28/24 [History] Ranolazine [Ranolazine ER] 1,000 mg PO BID 03/28/24 [History] Semaglutide [Ozempic] 0.5 mg SQ WEEKLY 03/28/24 [History] buPROPion HCL [Bupropion Xl] 300 mg PO DAILY 03/28/24 [History] Hx Tetanus, Diphtheria Vaccination/Date Given: Yes Hx Influenza Vaccination/Date Given: No Hx Pneumococcal Vaccination/Date Given: No Travel Risk - International Travel Have you traveled outside of the country in past 3 weeks: No - Emerging Infectious Disease Are you exhibiting symptoms associated with any current EIDs: No - Review of Systems Constitutional: No Symptoms Eyes: No Symptoms Ears, Nose, & Throat: No Symptoms Respiratory: No Symptoms Cardiac: No Symptoms Abdominal/Gastrointestinal: No Symptoms Genitourinary Symptoms: Flank Pain (Right flank pain) Musculoskeletal: No Symptoms Skin: No Symptoms Neurological: No Symptoms Psychological: No Symptoms Endocrine: No Symptoms Hematologic/Lymphatic: No Symptoms Immunological/Allergic: No Symptoms All Other Systems: Reviewed and Negative - Past Medical History Pertinent Past Medical History: Yes Neurological History: TIA ENT History: No Pertinent History Cardiac History: Coronary Artery Disease, Hypertension Respiratory History: Asthma, Bronchitis, COPD, Emphysema Endocrine Medical History: Diabetes Type II Musculoskeletal History: Degenerative Disk Disease, Other GI Medical History: Ulcer History: No Pertinent History Psycho-Social History: Anxiety, Depression Female Reproductive Disorders: Endometriosis Other Medical History: carpal tunnel bilateral wrists - Past Surgical History Past Surgical History: Yes Neuro Surgical History: No Pertinent History Cardiac: Cardiac Catheterization Respiratory: No Pertinent History Gastrointestinal: Cholecystectomy Genitourinary: Other Musculoskeletal: No Pertinent History Female Surgical History: No Pertinent History Other Surgical History: gasterctomy d/t ulcers, uterine ablation, bladder sling - Female History Hx Last Menstrual Period: ablation- approx 5+ yrs - Social History Smoking Status: Current every day smoker How long have you smoked: 32 years Exposure to second hand smoke: No Drug Use: marijuana - Social Determinants of Health Will the patient participate in the screening: Yes Do you worry about a steady place to live?: No In the past 12 months,have you had to go without utilities?: No Transportation Issues: No Has anyone in your support network made you feel unsafe?: No Have you or anyone in your house had to go without enough: No - Nursing Vital Signs Nursing Vital Signs: Initial Vital Signs Pulse Rate 71 04/21/24 12:11 Respiratory Rate 18 04/21/24 12:11 Blood Pressure 163/102 04/21/24 12:11 O2 Sat by Pulse Oximetry 96 04/21/24 12:11 Pain Scale Pain Intensity [Right Back] 8 Pain Intensity 8 - Physical Exam General Appearance: no apparent distress, alert, obese Eye Exam: PERRL/EOMI, eyes nml inspection Ears, Nose, Throat Exam: normal ENT inspection, moist mucous membranes Neck Exam: normal inspection, non-tender, supple, full range of motion Respiratory Exam: normal breath sounds, lungs clear, airway intact, No chest tenderness, No respiratory distress Cardiovascular Exam: regular rate/rhythm, normal heart sounds, normal peripheral pulses Pelvic Exam: not done Rectal Exam: not done Back Exam: normal inspection, normal range of motion, CVA tenderness (Right side flank pain), No vertebral tenderness Extremity Exam: normal inspection, normal range of motion, pelvis stable Neurologic Exam: alert, oriented x 3, cooperative, range rider II-XII nml as tested, nml cerebellar function, nml station & gait, sensation nml Skin Exam: normal color, warm, dry Lymphatic Exam: No adenopathy SpO2 Interpretation: normal O2 Delivery: Room Air - Course Nursing assessment & vital signs reviewed: Yes Ordered Tests: Active Orders 24 hr Category Date Time Status IV Insertion STAT Care 04/21/24 12:46 Active ABDOMEN AND PELVIS W/0 CONTRAS [CT] Stat Exams 04/21/24 12:47 Ordered CULTURE,URINE Stat Lab 04/21/24 12:26 Received UA W/RFX UR CULTURE Stat Lab 04/21/24 12:26 Completed Medication Summary Discontinued Medications Generic Name Dose Route Start Last Admin Trade Name Freq PRN Reason Stop Dose Admin Hydrocodone Bitart/Acetaminophen 1 tab 11/04/24 12:59 Hydrocodone/Apap 5/325 1 Tab Tablet PO 04/21/24 13:00 STAT ONE Ceftriaxone Sodium 1,000 mg 04/21/24 12:59 Ceftriaxone Sodium 1000 Mg Inj Vial IM 04/21/24 13:00 STAT ONE Lab/Rad Data: Laboratory Results 04/21/24 Range/Units 12:26 Urine Color Dark Yellow A (Yellow) Urine Appearance Cloudy A (Clear) Urine pH 6.0 (4.6-8.0) Ur Specific [place] >=1.030 A (1.005-1.030) Urine Protein 30 (Negative) Urine Glucose (UA) Negative (Negative) mg/dL Urine Ketones Trace A (Negative) Urine Blood Negative (Negative) Urine Nitrite Negative (Negative) Urine Bilirubin Negative (Negative) Urine Urobilinogen 1.0 A (0.2) mg/dL Ur Leukocyte Esterase Small A (Negative) U Hyaline Cast (Auto) 3-5 A (0-2) /LPF Urine Microscopic RBC 3-5 (0-5) /HPF Urine Microscopic WBC 11-20 A (0-5) /HPF Ur Epithelial Cells Many A (None Seen) /HPF Urine Bacteria Moderate A (None Seen) /HPF Urine Culture Reflexed YES (NO) - Progress Progress: unchanged Progress Note: 04/21/24 13:11 My medical decision making and the assignment of low complexity to this patient's medical issue today is based on review of the patient's past medical history, review of the patient's medication list, review of patient drug allergy list, history present illness and physical findings on examination. The workup today is urinalysis. I did offer the patient placement of intravenous line, blood work and a CT scan of the abdomen pelvis. Once the urinalysis returned and shows a significant urinary tract infection, I believe this is the source of her right flank pain. Again, I did offer her next extensive workup. I am not necessarily convinced that she needs that but I did offer it to her. She declines the extensive workup. Counseled pt/family regarding: lab results, diagnosis, need for follow-up Medical Desision Making - Independent Historian Additional History obtained from: Spouse - Diagnostic Testing Diagnostic test were ordered, analyzed, and reviewed by me: Yes - Risk of complications The pt has a mod risk of morbidity or mortality based on: Need for prescription drug management - Departure Departure Disposition: Home Clinical Impression: UTI (urinary tract infection), Right flank pain Condition: Stable Critical Care Time: No Referrals: CHI JONES [Primary Care Provider] - Follow up/PCP as directed Additional Instructions: Drink plenty of clear liquids. Take all your medications as prescribed. Call your primary prescribing provider today, 04/21/2024, to make arranges for follow- up appointment for further evaluation and management. Prescriptions: Cefdinir 300 mg PO BID #14 cap
[2024-04-21 12:23] VITALS: RESP 18; TEMP 97.5; O2SAT 98
[2024-04-21 12:32] LABS: Appearance Cloudy (Clear); Bacteria Moderate /HPF (None Seen); Bilirubin Negative (Negative); Blood Negative (Negative); Epithelial Cells Many /HPF (None Seen); Glucose, Urine Negative (Negative); Ketones Trace (Negative); Leukocyte Esterase Small (Negative); Nitrite Negative (Negative); Protein,Urine Dip 30 (Negative); Specific Gravity >=1.030 (1.005-1.030)
[2024-04-21] MEDS ORDERED: Rocephin 1000 MG INJ ONE (13:37)
[2024-04-21] MEDS ORDERED: NORCO 5/325 MG ONE (13:37)
[2024-04-21] MEDS ORDERED: XYLOCAINE 1% HCL 20 ML MDV ONE (13:37)
[2024-04-21] MEDS: Rocephin 1000 MG INJ IM ONE (13:40)
[2024-04-21] MEDS: NORCO 5/325 MG PO ONE (13:41)
[2024-04-21 13:57] VITALS: BP 112/64; PULSE 64
--- NOTE | 2024-04-21 14:22 | XRAY ---
Indication: Right flank pain. Multiple contiguous axial images obtained through the abdomen and pelvis without contrast. Comparison: None Lung bases demonstrates 5 mm indeterminant right middle lobe noncalcified nodule. Minimal inferior lingula subsegmental atelectasis/scarring. No infiltrate or effusion. Heart not enlarged. Noncontrasted stomach demonstrates postsurgical changes. Noncontrasted bowel loops appear nonobstructed with normal appendix. Mild scattered descending and sigmoid diverticulosis without diverticulitis. Previous cholecystectomy. No free fluid/air. Remaining liver, pancreas, spleen, adrenal glands, kidneys, ureters, bladder, uterus, and aorta are unremarkable for noncontrast exam. Osseous structures intact with mild/moderate degenerative changes throughout thoracal lumbar spine, greatest at L4-S1. 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 Impression: 1. 5 mm indeterminate right middle lobe noncalcified nodule. Outside comparison studies recommended if available. If not, baseline CT chest with follow-up per Fleischner guidelines recommended. 2. Chronic findings including colonic diverticulosis, multilevel degenerative spondylosis, and L5 spondylolysis with grade [address] abdomen/pelvis without contrast exam is negative.
== END 2024-04-21 13:10 | disposition home or self-care (01) ==
LOC: ED 11:19
DX: N39.0 Urinary tract infection, site not specified (principal); R10.9 Unspecified abdominal pain; E11.9 Type 2 diabetes mellitus without complications; E78.5 Hyperlipidemia, unspecified; I10 Essential (primary) hypertension; Z79.85 Long-term (current) use of injectable non-insulin antidiabetic drugs; Z79.899 Other long term (current) drug therapy; Z72.0 Tobacco use
CPT/HCPCS: 74176; 81001; 87086; 96372; 99283; 99284; J0696; A9270-GY

== ENCOUNTER 2024-04-26 21:33 | Emergency (ER) | payer OTHER ==
[2024-04-26 21:53] VITALS: TEMP 97.6
--- NOTE | 2024-04-26 22:16 | ERPHSYRPT ---
- History of Present Illness Source: patient Exam Limitations: no limitations Patient Subjective Stated Complaint: pt states she started feeling bad th is afternoon- feeling like her knees were going to buckle and nauseated and feeling "lalitha drunk". state she felt like this a few weeks ago when she came in and was daignosed with renal failure Triage Nursing Assessment: pt alert and oriented, answers questions approp. pt back to room per wheelchair and transfers to stretcher wwith minimal assist. respirations nonlabored. skin warm and dry. pupils equal and reactive. bilat upper and lower ext strength equal and wnl. Physician History: Patient said she has just been a little bit confused over the last day. She is also been dealing with some weakness. She is had a history she says acute kidney injury recently. I looked back through her records and it looks like her creatinine had bumped up around 03 28 and 29 March. She is here on 21 March for a UTI and was treated. She has had no medication changes. She does take Lasix. She says that she is here because she feels like she did when she had acute kidney injury. She said she basically feels little bit confused weak and uncoordinated. Nothing really seems to make the symptoms better or worse. She has not had a fever chills nausea vomiting or rash.There is been no new medication changes Timing/Duration: other (This morning) Severity: mild, moderate Allergies/Adverse Reactions: diltiazem Allergy (Unknown, Verified 04/26/24 21:53) Home Medications: Aspirin EC 81 mg [Ecotrin 81 mg] 81 mg PO DAILY 03/28/24 [History] Atorvastatin Calcium [Lipitor] 80 mg PO DAILY 03/28/24 [History] Budesonide/Formoterol Fumarate [Budesonide-Formoterol 160-4.5] 1 inh IH BID 03/28/24 [History] Buspirone HCl 5 mg [Buspar 5 mg] 5 mg PO TID 03/28/24 [History] Cyclobenzaprine HCl 5 mg PO TIDPRN PRN 03/28/24 [History] Furosemide 40 mg [Lasix 40 MG] 40 mg PO BID 03/28/24 [History] Isosorbide Mononitrate 60 mg [Imdur 60MG] 120 mg PO DAILY 03/28/24 [History] Losartan/Hydrochlorothiazide [Losartan-Hctz 100-12.5 mg Tab] 1 each PO DAILY 03/28/24 [History] Metoprolol Succinate 25 mg Xl* [Toprol-Xl 25MG Tablets] 25 mg PO DAILY 03/28/24 [History] Mirtazapine 15 mg PO HS 03/28/24 [History] Nitroglycerin 0.4 mg Tablet [Nitrostat 0.4 MG Tablet] 0.4 mg SL UD PRN 03/28/24 [History] PANTOPRAZOLE 40 mg Tablet [Protonix 40MG Tablet] 40 mg PO QAM 03/28/24 [History] Prazosin HCl 1 mg PO HS 03/28/24 [History] Pregabalin [Lyrica 150Mg] 150 mg PO BID 03/28/24 [History] Ranolazine [Ranolazine ER] 1,000 mg PO BID 03/28/24 [History] Semaglutide [Ozempic] 0.5 mg SQ WEEKLY 03/28/24 [History] buPROPion HCL [Bupropion Xl] 300 mg PO DAILY 03/28/24 [History] Hx Tetanus, Diphtheria Vaccination/Date Given: Yes Hx Influenza Vaccination/Date Given: No Hx Pneumococcal Vaccination/Date Given: No Immunizations Up to Date: Yes Travel Risk - International Travel Have you traveled outside of the country in past 3 weeks: No - Emerging Infectious Disease Are you exhibiting symptoms associated with any current EIDs: No - Review of Systems Constitutional: Fatigue, Lethargy, Weakness Eyes: No Symptoms Ears, Nose, & Throat: No Symptoms Respiratory: No Symptoms Cardiac: No Symptoms Abdominal/Gastrointestinal: No Symptoms Genitourinary Symptoms: No Symptoms Musculoskeletal: No Symptoms Skin: No Symptoms Neurological: No Symptoms Endocrine: No Symptoms All Other Systems: Reviewed and Negative - Past Medical History Pertinent Past Medical History: Yes Neurological History: TIA ENT History: No Pertinent History Cardiac History: Coronary Artery Disease, Hypertension Respiratory History: Asthma, Bronchitis, COPD, Emphysema Endocrine Medical History: Diabetes Type II Musculoskeletal History: Degenerative Disk Disease, Other GI Medical History: Ulcer History: No Pertinent History Psycho-Social History: Anxiety, Depression Female Reproductive Disorders: Endometriosis Other Medical History: carpal tunnel bilateral wrists - Past Surgical History Past Surgical History: Yes Neuro Surgical History: No Pertinent History Cardiac: Cardiac Catheterization Respiratory: No Pertinent History Gastrointestinal: Cholecystectomy Genitourinary: Other Musculoskeletal: No Pertinent History Female Surgical History: No Pertinent History Other Surgical History: gasterctomy d/t ulcers, uterine ablation, bladder sling - Female History Hx Last Menstrual Period: ablation Hx Now: No - Social History Smoking Status: Current every day smoker How long have you smoked: 32 years Exposure to second hand smoke: No Drug Use: marijuana - Social Determinants of Health Will the patient participate in the screening: Yes Do you worry about a steady place to live?: No Do you have any problems with any of the following?: No known problems In the past 12 months,have you had to go without utilities?: No Transportation Issues: No Has anyone in your support network made you feel unsafe?: No Have you or anyone in your house had to go without enough: No - Nursing Vital Signs Nursing Vital Signs: Initial Vital Signs Temperature 97.6 F 04/26/24 21:35 Pulse Rate 77 04/26/24 21:35 Respiratory Rate 18 04/26/24 21:35 Blood Pressure 118/76 04/26/24 21:35 O2 Sat by Pulse Oximetry 99 04/26/24 21:35 Pain Scale Pain Intensity 0 - Physical Exam General Appearance: no apparent distress, other (Patient's speech seems a little bit slow and deliberate.) Eye Exam: PERRL/EOMI, eyes nml inspection Ears, Nose, Throat Exam: normal ENT inspection Neck Exam: normal inspection Respiratory Exam: normal breath sounds, lungs clear, No chest tenderness, No respiratory distress Cardiovascular Exam: regular rate/rhythm, normal heart sounds Pelvic Exam: not done Rectal Exam: not done Back Exam: normal inspection Extremity Exam: normal inspection Neurologic Exam: alert, oriented x 3, cooperative, normal mood/affect, other (Like I mentioned earlier the patient seems a little bit slow in her mentation.) Skin Exam: normal color, warm, dry - Course Nursing assessment & vital signs reviewed: Yes EKG Interpreted by Me: RATE, Sinus Rhythm, NORMAL INTERVALS, NORMAL QRS, Non- specific ST Changes, Other (Independently interpreted by me.) Ordered Tests: Active Orders 24 hr Category Date Time Status CBC W DIFF Stat Lab 04/26/24 22:44 Completed CMP Stat Lab 04/26/24 22:44 Completed MAG [MAGNESIUM] Stat Lab 04/26/24 22:44 Completed UA W/RFX UR CULTURE Stat Lab 04/26/24 23:17 Completed Medication Summary Discontinued Medications Generic Name Dose Route Start Last Admin Trade Name Dilip PRN Reason Stop Dose Admin Sodium Chloride 1,000 mls @ 999 mls/hr 04/26/24 23:12 04/26/24 23:19 Sodium Chloride 0.9% 1000 Ml IV 04/27/24 00:12 Not Given .Q1H1M STA Sodium Chloride 1,000 mls @ 999 mls/hr 04/26/24 23:16 04/26/24 23:21 Sodium Chloride 0.9% 1000 Ml IV 04/27/24 00:16 999 mls/hr .Q1H1M STA Administration Sodium Chloride Confirm 04/26/24 23:18 Sodium Chloride 0.9% 1000 Ml Administered 04/26/24 23:19 Dose 1,000 mls @ ud .ROUTE .K-MED ONE Lab/Rad Data: Laboratory Result Diagrams 04/26/24 22:44 04/26/24 22:44 Laboratory Results 04/26/24 04/26/24 04/26/24 Range/Units 23:17 22:44 22:44 WBC 13.0 H (3.98-10.04) x10^3/uL RBC 4.45 (3.93-5.22) x10^6/uL Hgb 13.4 (11.2-15.7) g/dL Hct 40.7 (34.1-44.9) % MCV 91.5 (79.4-94.8) fL MCH 30.1 (25.6-32.2) pg MCHC 32.9 (32.2-35.5) g/dL RDW 13.9 (11.7-14.4) % Plt Count 331 (182-369) x10^3/uL MPV 10.6 (9.4-12.3) fL Gran % 66.0 (34.0-71.1) % Immature Gran % (Auto) 0.5 H (0.001-0.429) % Nucleat RBC Rel Count 0.0 (0.00-0.2) % Eos # (Auto) 0.19 (0.04-0.36) x10^3/uL Immature Gran # (Auto) 0.07 H (0.001-0.031) x10^3u/L Absolute Lymphs (auto) 3.24 (1.18-3.74) x10^3/uL Absolute Monos (auto) 0.86 (0.24-0.86) x10^3/uL Absolute Nucleated RBC 0.00 (0.00-0.012) x10^3u/L Lymphocytes % 24.9 (19.3-51.7) % Monocytes % 6.6 (4.7-12.5) % Eosinophils % 1.5 (0.7-5.8) % Basophils % 0.5 (0.1-1.2) % Absolute Granulocytes 8.57 H (1.56-6.13) x10^3/uL Basophils # 0.06 (0.01-0.08) x10^3/uL Sodium (135-145) mmol/L Potassium (3.5-5.1) mmol/L Chloride (98-107) mmol/L Carbon Dioxide (22-30) mmol/L Anion Gap (5-15) MEQ/L BUN (7-17) mg/dL Creatinine (0.52-1.04) mg/dL Estimated GFR ML/MIN Glucose (74-106) mg/dL Calcium (8.4-10.2) mg/dL Magnesium 2.0 (1.6-2.3) mg/dL Total Bilirubin (0.2-1.3) mg/dL AST (14-36) U/L ALT (0-35) U/L Alkaline Phosphatase (38-126) U/L Serum Total Protein (6.3-8.2) g/dL Albumin (3.5-5.0) g/dL Urine Color Yellow (Yellow) Urine Appearance Clear (Clear) Urine pH 5.0 (4.6-8.0) Ur Specific [place] <=1.005 (1.005-1.030) Urine Protein Negative (Negative) Urine Glucose (UA) Negative (Negative) mg/dL Urine Ketones Negative (Negative) Urine Blood Negative (Negative) Urine Nitrite Negative (Negative) Urine Bilirubin Negative (Negative) Urine Urobilinogen 0.2 (0.2) mg/dL Ur Leukocyte Esterase Negative (Negative) U Hyaline Cast (Auto) 0-2 (0-2) /LPF Urine Microscopic RBC 0-2 (0-5) /HPF Urine Microscopic WBC 0-2 (0-5) /HPF Ur Epithelial Cells Few (None Seen) /HPF Urine Bacteria None Seen (None Seen) /HPF Urine Culture Reflexed NO (NO) 04/26/24 Range/Units 22:44 WBC (3.98-10.04) x10^3/uL RBC (3.93-5.22) x10^6/uL Hgb (11.2-15.7) g/dL Hct (34.1-44.9) % MCV (79.4-94.8) fL MCH (25.6-32.2) pg MCHC (32.2-35.5) g/dL RDW (11.7-14.4) % Plt Count (182-369) x10^3/uL MPV (9.4-12.3) fL Gran % (34.0-71.1) % Immature Gran % (Auto) (0.001-0.429) % Nucleat RBC Rel Count (0.00-0.2) % Eos # (Auto) (0.04-0.36) x10^3/uL Immature Gran # (Auto) (0.001-0.031) x10^3u/L Absolute Lymphs (auto) (1.18-3.74) x10^3/uL Absolute Monos (auto) (0.24-0.86) x10^3/uL Absolute Nucleated RBC (0.00-0.012) x10^3u/L Lymphocytes % (19.3-51.7) % Monocytes % (4.7-12.5) % Eosinophils % (0.7-5.8) % Basophils % (0.1-1.2) % Absolute Granulocytes (1.56-6.13) x10^3/uL Basophils # (0.01-0.08) x10^3/uL Sodium 142 (135-145) mmol/L Potassium 3.6 (3.5-5.1) mmol/L Chloride 105 (98-107) mmol/L Carbon Dioxide 26 (22-30) mmol/L Anion Gap 15.4 H (5-15) MEQ/L BUN 27 H (7-17) mg/dL Creatinine 1.82 H (0.52-1.04) mg/dL Estimated GFR 33.9 ML/MIN Glucose 81 (74-106) mg/dL Calcium 9.3 (8.4-10.2) mg/dL Magnesium (1.6-2.3) mg/dL Total Bilirubin 0.30 (0.2-1.3) mg/dL AST 25 (14-36) U/L ALT 25 (0-35) U/L Alkaline Phosphatase 105 (38-126) U/L Serum Total Protein 7.3 (6.3-8.2) g/dL Albumin 4.3 (3.5-5.0) g/dL Urine Color (Yellow) Urine Appearance (Clear) Urine pH (4.6-8.0) Ur Specific [place] (1.005-1.030) Urine Protein (Negative) Urine Glucose (UA) (Negative) mg/dL Urine Ketones (Negative) Urine Blood (Negative) Urine Nitrite (Negative) Urine Bilirubin (Negative) Urine Urobilinogen (0.2) mg/dL Ur Leukocyte Esterase (Negative) U Hyaline Cast (Auto) (0-2) /LPF Urine Microscopic RBC (0-5) /HPF Urine Microscopic WBC (0-5) /HPF Ur Epithelial Cells (None Seen) /HPF Urine Bacteria (None Seen) /HPF Urine Culture Reflexed (NO) - Progress Progress: improved Progress Note: Patient was stable throughout stay. She was a little bit hypotensive. She was given a liter of IV fluidsAnd monitored. Her creatinine was 1.8 which is a little bit high for her. She had similar symptoms 3 weeks ago or so. After the IV fluid she said she was feeling better. Her heart rate was in the 70s but h er pressure was around 90/60. She says it usually runs around 110/70.She did not have any focal neurological deficits. She said that she was feeling better but was a little bit slow in her thinking and thought processes.Her primary doctor was aware of this last time it happened. He is still aware. I am going to have her follow-up with him. I am also going to have her hold off on her Lasix. 04/27/24 00:07 04/27/24 00:08 Medical Desision Making - Independent Historian Additional History obtained from: Spouse - Diagnostic Testing Diagnostic test were ordered, analyzed, and reviewed by me: Yes - Risk of complications Minimal Risk: Minimal risk of morbidity - Departure Departure Disposition: Home Clinical Impression: Acute renal failure Condition: Stable Critical Care Time: No Referrals: CHI JONES [Primary Care Provider] - Follow up/PCP as directed Additional Instructions: Drink plenty of water and other clear liquids. Follow-up with your primary doctor in the next day or 2. Stop your Lasix for at least 2 days. Your primary doctor can advise you past that.
[2024-04-26 22:48] LABS: Absolute Neutrophil Ct (ANC) 8.57 x10^3/uL (1.56-6.13); BASOPHIL % 0.5 % (0.1-1.2); Basophil (Absolute #) 0.06 x10^3/uL (0.01-0.08); Eosinophil % 1.5 % (0.7-5.8); Eosinophil (Absolute #) 0.19 x10^3/uL (0.04-0.36); Hematocrit 40.7 % (34.1-44.9); Hemoglobin 13.4 g/dL (11.2-15.7); IMMATURE GRAN # 0.07 x10^3u/L (0.001-0.031); IMMATURE GRAN % 0.5 % (0.001-0.429); Lymphocyte (Absolute #) 3.24 x10^3/uL (1.18-3.74); Lymphocytes % 24.9 % (19.3-51.7); Mean Cell Volume 91.5 fL (79.4-94.8); Mean Corpuscular Hemoglobin 30.1 pg (25.6-32.2); Mean Corpuscular Hgb Concent. 32.9 g/dL (32.2-35.5); Mean Platelet Volume 10.6 fL (9.4-12.3); Monocyte (Absolute #) 0.86 x10^3/uL (0.24-0.86); Monocytes % 6.6 % (4.7-12.5); Platelet Count 331 x10^3/uL (182-369); Red Blood Count 4.45 x10^6/uL (3.93-5.22); Red Cell Distribution Width 13.9 % (11.7-14.4)
[2024-04-26 23:03] LABS: ALBUMIN 4.3 g/dL (3.5-5.0); ANION GAP 15.4 MEQ/L (5-15); BILIRUBIN,TOTAL 0.3 mg/dL (0.2-1.3); Calcium 9.3 mg/dL (8.4-10.2); Creatinine 1 1.82 mg/dL (0.52-1.04); EST GLOMERULAR FILTRATION RATE 33.9 ML/MIN; Potassium 3.6 mmol/L (3.5-5.1); Total Protein 7.3 g/dL (6.3-8.2)
[2024-04-26] MEDS ORDERED: Sodium Chloride 0.9% 1000 ML 1,000 ML ONE (23:18)
[2024-04-26] MEDS: Sodium Chloride 0.9% 1000 ML 1,000 ML IV STA ×2 (23:19→23:21)
[2024-04-26 23:28] LABS: Appearance Clear (Clear); Bacteria None Seen /HPF (None Seen); Bilirubin Negative (Negative); Blood Negative (Negative); Epithelial Cells Few /HPF (None Seen); Glucose, Urine Negative (Negative); Hyaline Casts 0-2 /LPF (0-2); Ketones Negative (Negative); Leukocyte Esterase Negative (Negative); Nitrite Negative (Negative); Protein,Urine Dip Negative (Negative); RBC 0-2 /HPF (0-5); Specific Gravity <=1.005 (1.005-1.030); Urobilinogen 0.2 mg/dL (0.2); WBC 0-2 /HPF (0-5)
[2024-04-27 00:22] VITALS: PULSE 77; RESP 16
[2024-04-27 00:53] VITALS: BP 117/84; O2SAT 95
== END 2024-04-27 01:04 | disposition home or self-care (01) ==
LOC: ED 21:33
DX: N17.9 Acute kidney failure, unspecified (principal); R41.0 Disorientation, unspecified; R53.1 Weakness; I10 Essential (primary) hypertension; E11.9 Type 2 diabetes mellitus without complications; Z79.85 Long-term (current) use of injectable non-insulin antidiabetic drugs; Z79.899 Other long term (current) drug therapy; Z72.0 Tobacco use
CPT/HCPCS: 36000; 36415; 80053; 81001; 83735; 85025; 96360; 99283; 99284

== ENCOUNTER 2024-05-11 18:01 | Observation (INO) | payer OTHER ==
[2024-05-11] MEDS ORDERED: Sodium Chloride 0.9% 1000 ML 1,000 ML ONE (18:35)
[2024-05-11] MEDS ORDERED: PROTONIX 40 MG IV IV ONE (18:35)
[2024-05-11] MEDS ORDERED: Zofran 4 MG/2 ML VIAL ONE (18:35)
[2024-05-11] MEDS: Zofran 4 MG/2 ML VIAL IV ONE (18:37)
[2024-05-11] MEDS: PROTONIX 40 MG IV IV ONE (18:37)
[2024-05-11] MEDS: Sodium Chloride 0.9% 1000 ML 1,000 ML IV STA (18:37)
[2024-05-11 18:45] LABS: BASOPHIL % 0.5 % (0.1-1.2); Basophil (Absolute #) 0.05 x10^3/uL (0.01-0.08); Eosinophil % 1.2 % (0.7-5.8); Eosinophil (Absolute #) 0.12 x10^3/uL (0.04-0.36); Hematocrit 39.3 % (34.1-44.9); IMMATURE GRAN # 0.03 x10^3u/L (0.001-0.031); IMMATURE GRAN % 0.3 % (0.001-0.429); Lymphocyte (Absolute #) 3.14 x10^3/uL (1.18-3.74); Lymphocytes % 32.2 % (19.3-51.7); Mean Cell Volume 89.9 fL (79.4-94.8); Mean Corpuscular Hemoglobin 29.7 pg (25.6-32.2); Mean Corpuscular Hgb Concent. 33.1 g/dL (32.2-35.5); Mean Platelet Volume 10.5 fL (9.4-12.3); Monocytes % 6.2 % (4.7-12.5); Neutrophil % 59.6 % (34.0-71.1); Platelet Count 362 x10^3/uL (182-369); Red Blood Count 4.37 x10^6/uL (3.93-5.22); Red Cell Distribution Width 13.6 % (11.7-14.4); White Blood Count 9.7 x10^3/uL (3.98-10.04)
--- NOTE | 2024-05-11 19:04 | ERPHSYRPT ---
- History of Present Illness Time Seen by Provider: 05/11/24 18:04 Source: patient Exam Limitations: no limitations Patient Subjective Stated Complaint: vomiting since , cold chills and diarrhea since yesterday. lost 5 lbs. Triage Nursing Assessment: Pt to ED bed 8 ambulatory, A &OX3, vss. C/o vomiting x 3 days, diarrhea and cold chills today. On ozempic, switched from 0.25mg to 0.5mg 2 weeks ago. States she lives with her daughter who was around someone with covid recently. Skin PWD. Abdomen soft. Reports 4 episodes vomiting and 4 episodes diarrhea today. Physician History: 49 years old female with history of hypertension, hyperlipidemia, GERD, CKD, chronic back pain currently on Ozempic for weight loss with a recent increase in the dose from 0.25 to 0.52 weeks ago presented in the ER with increasing nausea vomiting for last 2 days and today started to have diarrhea. Patient reports multiple episodes of nonprojectile, nonbilious vomiting without hematemesis and also having loose watery stool today. She is not able to hold anything down. Patient reports feeling weak fatigued tired and dehydrated. Minimal abdominal discomfort with vomiting. No fever or chills reported. Questionable sick co ntact. Allergies/Adverse Reactions: diltiazem Allergy (Unknown, Verified 05/11/24 18:11) Home Medications: Aspirin EC 81 mg [Ecotrin 81 mg] 81 mg PO DAILY 03/28/24 [History] Atorvastatin Calcium [Lipitor] 80 mg PO DAILY 03/28/24 [History] Budesonide/Formoterol Fumarate [Budesonide-Formoterol 160-4.5] 1 inh IH BID 03/28/24 [History] Buspirone HCl 5 mg [Buspar 5 mg] 5 mg PO TID 03/28/24 [History] Cyclobenzaprine HCl 5 mg PO TIDPRN PRN 03/28/24 [History] Isosorbide Mononitrate 60 mg [Imdur 60MG] 120 mg PO DAILY 03/28/24 [History] Losartan/Hydrochlorothiazide [Losartan-Hctz 100-12.5 mg Tab] 1 each PO DAILY 03/28/24 [History] Metoprolol Succinate 25 mg Xl* [Toprol-Xl 25MG Tablets] 25 mg PO DAILY 03/28/24 [History] Mirtazapine 15 mg PO HS 03/28/24 [History] Nitroglycerin 0.4 mg Tablet [Nitrostat 0.4 MG Tablet] 0.4 mg SL UD PRN 03/28/24 [History] PANTOPRAZOLE 40 mg Tablet [Protonix 40MG Tablet] 40 mg PO QAM 03/28/24 [History] Prazosin HCl 1 mg PO HS 03/28/24 [History] Pregabalin [Lyrica 150Mg] 150 mg PO BID 03/28/24 [History] Ranolazine [Ranolazine ER] 1,000 mg PO BID 03/28/24 [History] Semaglutide [Ozempic] 0.5 mg SQ WEEKLY 03/28/24 [History] buPROPion HCL [Bupropion Xl] 300 mg PO DAILY 03/28/24 [History] Hx Tetanus, Diphtheria Vaccination/Date Given: Yes Hx Influenza Vaccination/Date Given: No Hx Pneumococcal Vaccination/Date Given: No Travel Risk - International Travel Have you traveled outside of the country in past 3 weeks: No - Emerging Infectious Disease Are you exhibiting symptoms associated with any current EIDs: No Symptoms: Diarrhea, Vomitting - Review of Systems Constitutional: Fatigue, Weakness Eyes: No Symptoms Ears, Nose, & Throat: No Symptoms Respiratory: No Symptoms Cardiac: No Symptoms Abdominal/Gastrointestinal: Abdominal Pain, Nausea, Vomiting, Diarrhea Genitourinary Symptoms: No Symptoms Musculoskeletal: Arthralgias, Back Pain Skin: No Symptoms Endocrine: No Symptoms Hematologic/Lymphatic: No Symptoms - Past Medical History Pertinent Past Medical History: Yes Neurological History: TIA ENT History: No Pertinent History Cardiac History: Coronary Artery Disease, Hypertension Respiratory History: Asthma, Bronchitis, COPD, Emphysema Endocrine Medical History: Diabetes Type II Musculoskeletal History: Degenerative Disk Disease, Other GI Medical History: Ulcer History: No Pertinent History Psycho-Social History: Anxiety, Depression Female Reproductive Disorders: Endometriosis Other Medical History: carpal tunnel bilateral wrists - Past Surgical History Past Surgical History: Yes Neuro Surgical History: No Pertinent History Cardiac: Cardiac Catheterization Respiratory: No Pertinent History Gastrointestinal: Cholecystectomy Genitourinary: Other Musculoskeletal: No Pertinent History Female Surgical History: No Pertinent History Other Surgical History: gasterctomy d/t ulcers, uterine ablation, bladder sling - Female History Hx Last Menstrual Period: ablation Hx Now: (unkn) - Social History Smoking Status: Current every day smoker How long have you smoked: 32 years Exposure to second hand smoke: No Drug Use: marijuana - Social Determinants of Health Will the patient participate in the screening: Yes Do you worry about a steady place to live?: No In the past 12 months,have you had to go without utilities?: No Transportation Issues: No Has anyone in your support network made you feel unsafe?: No Have you or anyone in your house had to go without enough: No - Nursing Vital Signs Nursing Vital Signs: Initial Vital Signs Temperature 97.7 F 05/11/24 18:06 Pulse Rate 90 05/11/24 18:06 Respiratory Rate 16 05/11/24 18:06 Blood Pressure 140/94 05/11/24 18:06 O2 Sat by Pulse Oximetry 98 05/11/24 18:06 Pain Scale Pain Intensity 4 - Physical Exam General Appearance: no apparent distress, alert Eye Exam: PERRL/EOMI Ears, Nose, Throat Exam: moist mucous membranes Neck Exam: normal inspection, full range of motion Respiratory Exam: normal breath sounds, lungs clear Cardiovascular Exam: regular rate/rhythm, normal heart sounds Gastrointestinal/Abdomen Exam: soft, normal bowel sounds, tenderness (Minimal generalized tenderness), No guarding Extremity Exam: normal inspection, normal range of motion Neurologic Exam: alert, oriented x 3, cooperative Skin Exam: normal color SpO2 Interpretation: normal SpO2: 98 O2 Delivery: Room Air Ordered Tests: Active Orders 24 hr Category Date Time Status IV Insertion STAT Care 05/11/24 18:20 Active NPO (ED) STAT Care 05/11/24 18:20 Active ABDOMEN AND PELVIS W/0 CONTRAS [CT] Stat Exams 05/11/24 18:49 Completed CBC W DIFF Stat Lab 05/11/24 18:43 Completed CMP Stat Lab 05/11/24 18:43 Completed CULTURE,URINE Stat Lab 05/11/24 19:21 Received HCG QUALITATIVE, URINE Stat Lab 05/11/24 19:20 Completed LIPASE Stat Lab 05/11/24 18:43 Completed Lactic Acid Stat Lab 05/11/24 18:30 Completed UA W/RFX UR CULTURE Stat Lab 05/11/24 19:21 Completed Medication Summary Generic Name Dose Route Start Last Admin Trade Name Freq PRN Reason Stop Dose Admin Levofloxacin/Dextrose 750 mg in 150 mls @ 100 mls/hr 05/11/24 20:32 Levofloxacin 750mg/150ml D5w IV 05/11/24 22:01 STAT STA Metronidazole 500 mg in 100 mls @ 200 mls/hr 05/11/24 20:32 05/11/24 20:45 Flagyl 500 Mg Ivpb IV 05/11/24 21:01 200 mls/hr STAT STA 200 mls/hr Administration Discontinued Medications Generic Name Dose Route Start Last Admin Trade Name Dilip PRN Reason Stop Dose Admin Sodium Chloride 1,000 mls @ 999 mls/hr 05/11/24 18:20 05/11/24 20:37 Sodium Chloride 0.9% 1000 Ml IV 05/11/24 19:20 Infused .Q1H1M STA Infusion Sodium Chloride Confirm 05/11/24 18:35 Sodium Chloride 0.9% 1000 Ml Administered 05/11/24 18:36 Dose 1,000 mls @ ud .ROUTE .STK-MED ONE Metronidazole Confirm 05/11/24 20:43 Flagyl 500 Mg Ivpb Administered 05/11/24 20:44 Dose 500 mg in 100 mls @ ud IV .STK-MED ONE Ondansetron HCl 4 mg 05/11/24 18:20 05/11/24 18:37 Ondansetron Hcl 4 Mg/2 Ml Vial IV 05/11/24 18:21 4 mg STAT ONE Administration Ondansetron HCl Confirm 05/11/24 18:35 Ondansetron Hcl 4 Mg/2 Ml Vial Administered 05/11/24 18:36 Dose 4 mg .ROUTE .STK-MED ONE Pantoprazole Sodium 40 mg 05/11/24 18:20 05/11/24 18:37 Pantoprazole 40 Mg Vial IV 05/11/24 18:21 40 mg STAT ONE Administration Pantoprazole Sodium Confirm 05/11/24 18:35 Pantoprazole 40 Mg Vial Administered 05/11/24 18:36 Dose 40 mg IV .STK-MED ONE Lab/Rad Data: Laboratory Result Diagrams 05/11/24 18:43 05/11/24 18:43 Laboratory Results 05/11/24 05/11/24 05/11/24 Range/Units 19:21 19:20 19:20 WBC (3.98-10.04) x10^3/uL RBC (3.93-5.22) x10^6/uL Hgb (11.2-15.7) g/dL Hct (34.1-44.9) % MCV (79.4-94.8) fL MCH (25.6-32.2) pg MCHC (32.2-35.5) g/dL RDW (11.7-14.4) % Plt Count (182-369) x10^3/uL MPV (9.4-12.3) fL Gran % (34.0-71.1) % Immature Gran % (Auto) (0.001-0.429) % Nucleat RBC Rel Count (0.00-0.2) % Eos # (Auto) (0.04-0.36) x10^3/uL Immature Gran # (Auto) (0.001-0.031) x10^3u/L Absolute Lymphs (auto) (1.18-3.74) x10^3/uL Absolute Monos (auto) (0.24-0.86) x10^3/uL Absolute Nucleated RBC (0.00-0.012) x10^3u/L Lymphocytes % (19.3-51.7) % Monocytes % (4.7-12.5) % Eosinophils % (0.7-5.8) % Basophils % (0.1-1.2) % Absolute Granulocytes (1.56-6.13) x10^3/uL Basophils # (0.01-0.08) x10^3/uL Sodium (135-145) mmol/L Potassium (3.5-5.1) mmol/L Chloride (98-107) mmol/L Carbon Dioxide (22-30) mmol/L Anion Gap (5-15) MEQ/L BUN (7-17) mg/dL Creatinine (0.52-1.04) mg/dL Estimated GFR ML/MIN Glucose (74-106) mg/dL Lactic Acid (0.4-2.0) Calcium (8.4-10.2) mg/dL Total Bilirubin (0.2-1.3) mg/dL AST (14-36) U/L ALT (0-35) U/L Alkaline Phosphatase (38-126) U/L Serum Total Protein (6.3-8.2) g/dL Albumin (3.5-5.0) g/dL Lipase (23-300) U/L Urine Color Yellow (Yellow) Urine Appearance Cloudy A (Clear) Urine pH 5.5 (4.6-8.0) Ur Specific [place] 1.025 (1.005-1.030) Urine Protein Negative (Negative) Urine Glucose (UA) Negative (Negative) mg/dL Urine Ketones Negative (Negative) Urine Blood Negative (Negative) Urine Nitrite Negative (Negative) Urine Bilirubin Negative (Negative) Urine Urobilinogen 0.2 (0.2) mg/dL Ur Leukocyte Esterase Trace A (Negative) U Hyaline Cast (Auto) NONE SEEN (0-2) /LPF Urine Microscopic RBC 0-2 (0-5) /HPF Urine Microscopic WBC 11-20 A (0-5) /HPF Ur Epithelial Cells Many A (None Seen) /HPF Urine Bacteria Many A (None Seen) /HPF Urine Culture Reflexed YES (NO) Urine HCG, Qual NEGATIVE (NEGATIVE) Influenza Type A Ag NEGATIVE (NEGATIVE) Influenza Type B Ag NEGATIVE (NEGATIVE) RSV (PCR) NEGATIVE (NEGATIVE) SARS-CoV-2 (PCR) NEGATIVE (NEGATIVE) 05/11/24 05/11/24 05/11/24 Range/Units 18:43 18:43 18:30 WBC 9.7 (3.98-10.04) x10^3/uL RBC 4.37 (3.93-5.22) x10^6/uL Hgb 13.0 (11.2-15.7) g/dL Hct 39.3 (34.1-44.9) % MCV 89.9 (79.4-94.8) fL MCH 29.7 (25.6-32.2) pg MCHC 33.1 (32.2-35.5) g/dL RDW 13.6 (11.7-14.4) % Plt Count 362 (182-369) x10^3/uL MPV 10.5 (9.4-12.3) fL Gran % 59.6 (34.0-71.1) % Immature Gran % (Auto) 0.3 (0.001-0.429) % Nucleat RBC Rel Count 0.0 (0.00-0.2) % Eos # (Auto) 0.12 (0.04-0.36) x10^3/uL Immature Gran # (Auto) 0.03 (0.001-0.031) x10^3u/L Absolute Lymphs (auto) 3.14 (1.18-3.74) x10^3/uL Absolute Monos (auto) 0.60 (0.24-0.86) x10^3/uL Absolute Nucleated RBC 0.00 (0.00-0.012) x10^3u/L Lymphocytes % 32.2 (19.3-51.7) % Monocytes % 6.2 (4.7-12.5) % Eosinophils % 1.2 (0.7-5.8) % Basophils % 0.5 (0.1-1.2) % Absolute Granulocytes 5.80 (1.56-6.13) x10^3/uL Basophils # 0.05 (0.01-0.08) x10^3/uL Sodium 141 (135-145) mmol/L Potassium 3.7 (3.5-5.1) mmol/L Chloride 107 (98-107) mmol/L Carbon Dioxide 27 (22-30) mmol/L Anion Gap 11.5 (5-15) MEQ/L BUN 22 H (7-17) mg/dL Creatinine 1.14 H (0.52-1.04) mg/dL Estimated GFR 59.4 ML/MIN Glucose 100 (74-106) mg/dL Lactic Acid 0.7 (0.4-2.0) Calcium 9.5 (8.4-10.2) mg/dL Total Bilirubin 0.40 (0.2-1.3) mg/dL AST 28 (14-36) U/L ALT 22 (0-35) U/L Alkaline Phosphatase 107 (38-126) U/L Serum Total Protein 7.1 (6.3-8.2) g/dL Albumin 4.0 (3.5-5.0) g/dL Lipase 54 (23-300) U/L Urine Color (Yellow) Urine Appearance (Clear) Urine pH (4.6-8.0) Ur Specific [place] (1.005-1.030) Urine Protein (Negative) Urine Glucose (UA) (Negative) mg/dL Urine Ketones (Negative) Urine Blood (Negative) Urine Nitrite (Negative) Urine Bilirubin (Negative) Urine Urobilinogen (0.2) mg/dL Ur Leukocyte Esterase (Negative) U Hyaline Cast (Auto) (0-2) /LPF Urine Microscopic RBC (0-5) /HPF Urine Microscopic WBC (0-5) /HPF Ur Epithelial Cells (None Seen) /HPF Urine Bacteria (None Seen) /HPF Urine Culture Reflexed (NO) Urine HCG, Qual (NEGATIVE) Influenza Type A Ag (NEGATIVE) Influenza Type B Ag (NEGATIVE) RSV (PCR) (NEGATIVE) SARS-CoV-2 (PCR) (NEGATIVE) - Progress Progress: improved, re-examined Progress Note: 05/11/24 20:59 49 years old with multiple medical problems is evaluated in the ER for abdominal pain with nausea vomiting and diarrhea. Patient does not have any hematochezia or hematemesis. She is given fluids and symptomatic treatment, on reevaluation she is feeling better. Workup showed normal white count, chemistries fairly unremarkable, CT abdomen pelvis consistent with diverticulitis, also noticed some thinning at the site of anastomosis as patient has history of colonic resection long time ago. No obvious perforation reported. Patient is started on Levaquin and Flagyl. I believe patient would benefit with IV antibiotics, observation, fluids. Shared the results of workup with patient and family and plan of admission which they understand and agree. Discussed with .: Srinath, Other Will see patient in: hospital (observation) Counseled pt/family regarding: lab results, diagnosis, need for follow-up, rad results Medical Desision Making - Independent Historian Additional History obtained from: Spouse - Discussion of managment Care discussed with:: hospitalist Reviewed:: Test results (Dr. Víctor Enriquez) Agreed on:: Treatment plan, place in obs Will see patient: in hospital - Diagnostic Testing Diagnostic test were ordered, analyzed, and reviewed by me: Yes Radiological Interpretation: Reviewed by me, Teleradiologist Report - Risk of complications The pt has a mod risk of morbidity or mortality based on: Need for prescription drug management The pt has a high risk of morbidity or mortality based on: Decision regarding hospitilization or escalation of hosp level of care - Departure Departure Disposition: Observation Clinical Impression: Acute diverticulitis, Gastroenteritis Condition: Stable Critical Care Time: No Referrals: CHI JONES [Primary Care Provider] - Follow up/PCP as directed
[2024-05-11 19:27] LABS: ANION GAP 11.5 MEQ/L (5-15); BILIRUBIN,TOTAL 0.4 mg/dL (0.2-1.3); Calcium 9.5 mg/dL (8.4-10.2); Creatinine 1 1.14 mg/dL (0.52-1.04); EST GLOMERULAR FILTRATION RATE 59.4 ML/MIN; Potassium 3.7 mmol/L (3.5-5.1); Total Protein 7.1 g/dL (6.3-8.2)
[2024-05-11 19:36] LABS: Appearance Cloudy (Clear); Bacteria Many /HPF (None Seen); Bilirubin Negative (Negative); Blood Negative (Negative); Epithelial Cells Many /HPF (None Seen); Glucose, Urine Negative (Negative); Hyaline Casts NONE SEEN /LPF (0-2); Ketones Negative (Negative); Leukocyte Esterase Trace (Negative); Nitrite Negative (Negative); Ph 5.5 (4.6-8.0); Protein,Urine Dip Negative (Negative); RBC 0-2 /HPF (0-5); Specific Gravity 1.025 (1.005-1.030); Urobilinogen 0.2 mg/dL (0.2)
[2024-05-11 19:40] LABS: HCG URINE TEST NEGATIVE (NEGATIVE)
--- NOTE | 2024-05-11 20:04 | XRAY ---
CLINICAL HISTORY: vomiting/diarrhea COMPARISON: 04/21/2024. TECHNIQUE: Non-contrast CT of the abdomen and pelvis was performed, with the following protocol: axial images, and reconstructed coronal and sagittal images. No intravenous contrast was administered. One of the following dose reduction techniques was utilized for this exam: Automated exposure control, adjustment of the mA and/or kV according to patient size, and use of iterative reconstruction. FINDINGS: A small 6 mm nodule at the right lower lung lobe, for annual follow-up. Abdomen: Liver: Normal in size, shape, and density. No focal lesions, cysts, or masses were identified. Gallbladder and Biliary System: The gallbladder is not seen. Pancreas: Pancreatic head, body, and tail are visualized and appear normal in size and density. No pancreatic masses or calcifications were noted. Spleen: Normal in size, shape, and density. No splenic lesions or masses were identified. Kidneys and Adrenal Glands: Both kidneys are normal in size, shape, and position. Cortical thickness is within normal limits. No renal calculi or hydronephrosis. Adrenal glands are unremarkable. Appendix: The appendix is normal. Pelvis: Urinary Bladder: Normal in contour and wall thickness. No intraluminal lesions. Uterus: Normal in size and contour. No masses or abnormal thickening. Ovaries: Not well visualized but no gross abnormalities noted. Vagina: Normal in contour and wall thickness. Cervix: No evidence of mass or abnormal thickening. Peritoneal and Retroperitoneal Structures: No free fluid or abnormal fluid collections were identified within the abdomen or pelvis. No lymphadenopathy was noted. Bowel: Significant sigmoid colon diverticulosis, with foci of extraluminal gas, and mild stranding, signifying acute diverticulitis. Suspected focal thinning of antral wall anteriorly, just distal to prior intervention site, for further endoscopic correlation. Bones and Soft Tissues: Pelvic bones and soft tissues are unremarkable. No fractures or abnormal masses were identified. IMPRESSION: Significant sigmoid colon diverticulosis, with foci of extraluminal gas, and mild stranding, signifying early acute diverticulitis. Suspected focal thinning of antral wall anteriorly, just distal to prior intervention site, for further endoscopic correlation. Small 6 mm nodule at right lower lung lobe, for annual follow-up. Electronically Signed by: No Cadena MD. (05/11/2024 20:01:01 EST)
[2024-05-11 20:05] LABS: INFLUENZA A NEGATIVE (NEGATIVE); INFLUENZA B NEGATIVE (NEGATIVE); RESPIRATORY SYNCTIAL VIRUS NEGATIVE (NEGATIVE); SARS-CoV-2 Xpert Express NEGATIVE (NEGATIVE)
[2024-05-11] MEDS ORDERED: FLAGYL 500 MG IVPB 500 MG/100 ML BAG IV ONE (20:43)
[2024-05-11] MEDS: FLAGYL 500 MG IVPB 500 MG/100 ML BAG IV STA (20:45)
[2024-05-11] MEDS ORDERED: Levofloxacin 500MG/100ML D5W 500 MG/100 ML BAG IV ONE (21:30)
[2024-05-11] MEDS ORDERED: Levaquin 250MG/50ML D5W 250 MG/50 ML BAG IV ONE (21:30)
[2024-05-11] MEDS: LEVOFLOXACIN 750MG/150ML D5W 750 MG/150 ML BAG IV STA (21:45)
[2024-05-11] MEDS: Levaquin 250MG/50ML D5W 250 MG/50 ML BAG IV STA (21:48)
--- NOTE | 2024-05-11 22:21 | PCM.HP ---
History of Present Illness - Chief Complaint Chief Complaint: Acute abdominal pain History of Present Illness: Ms. Paige is a 49F with HTN, HLD, CKD and obesity recently started on Ozempic for weight loss and had dose increased who presents with nausea, vomiting, abdominal pain and diarrhea, and on CT A/P found to have concern for early acute diverticulitis. Denies fevers, chest pain, SOB. Started on IVF and Levaquin in the ED. - Review of Systems Constitutional: No Fever, No Chills Eyes: No Symptoms Ears, Nose, & Throat: No Symptoms Respiratory: No Cough, No Short Of Breath Cardiac: No Chest Pain, No Edema, No Syncope Abdominal/Gastrointestinal: No Abdominal Pain, No Nausea, No Vomiting, No Diarrhea Genitourinary Symptoms: No Dysuria Musculoskeletal: No Back Pain, No Neck Pain Skin: No Rash Neurological: No Dizziness, No Focal Weakness, No Sensory Changes Psychological: No Symptoms Endocrine: No Symptoms Hematologic/Lymphatic: No Symptoms Immunological/Allergic: No Symptoms Medications & Allergies Home Medications: Home Medication List Aspirin EC 81 mg [Ecotrin 81 mg] 81 mg PO DAILY 03/28/24 [History Confirmed 05/11/24] Atorvastatin Calcium [Lipitor] 80 mg PO DAILY 03/28/24 [History Confirmed 05/11/24] Budesonide/Formoterol Fumarate [Budesonide-Formoterol 160-4.5] 1 inh IH BID 03/28/24 [History Confirmed 05/11/24] Buspirone HCl 5 mg [Buspar 5 mg] 5 mg PO TID 03/28/24 [History Confirmed 05/11/24] Cyclobenzaprine HCl 5 mg PO TIDPRN PRN 03/28/24 [History Confirmed 05/11/24] Isosorbide Mononitrate 60 mg [Imdur 60MG] 120 mg PO DAILY 03/28/24 [History Confirmed 05/11/24] Losartan/Hydrochlorothiazide [Losartan-Hctz 100-12.5 mg Tab] 1 each PO DAILY 1 [History Confirmed 05/11/24] Metoprolol Succinate 25 mg Xl* [Toprol-Xl 25MG Tablets] 25 mg PO DAILY 03/28/24 [History Confirmed 05/11/24] Mirtazapine 15 mg PO HS 03/28/24 [History Confirmed 05/11/24] Nitroglycerin 0.4 mg Tablet [Nitrostat 0.4 MG Tablet] 0.4 mg SL UD PRN 03/28/24 [History Confirmed 05/11/24] PANTOPRAZOLE 40 mg Tablet [Protonix 40MG Tablet] 40 mg PO QAM 03/28/24 [History Confirmed 05/11/24] Prazosin HCl 1 mg PO HS 03/28/24 [History Confirmed 05/11/24] Pregabalin [Lyrica 150Mg] 150 mg PO BID 03/28/24 [History Confirmed 05/11/24] Ranolazine [Ranolazine ER] 1,000 mg PO BID 03/28/24 [History Confirmed 05/11/24] Semaglutide [Ozempic] 0.5 mg SQ WEEKLY 03/28/24 [History Confirmed 05/11/24] buPROPion HCL [Bupropion Xl] 300 mg PO DAILY 03/28/24 [History Confirmed 05/11/24] Allergies/Adverse Reactions: Allergies Allergy/AdvReac Type Severity Reaction Status Date / Time diltiazem Allergy Unknown Verified 05/11/24 18:11 - Past Medical History Past Medical History: Yes Neurological History: TIA ENT History: No Pertinent History Cardiac History: Coronary Artery Disease, Hypertension Respiratory History: Asthma, Bronchitis, COPD, Emphysema Endocrine Medical History: Diabetes Type II Musculoskelatal History: Degenerative Disk Disease, Other GI Medical History: Ulcer History: No Pertinent History Pyscho-Social History: Anxiety, Depression Reproductive Disorders: Endometriosis Comment: carpal tunnel bilateral wrists - Female History Hx Last Menstrual Period: ablation Are you now?: (unkn) - Past Surgical History Past Surgical History: Yes Neuro Surgical History: No Pertinent History Cardiac History: Cardiac Catheterization Respiratory Surgery: No Pertinent History GI Surgical History: Cholecystectomy Genitourinary Surgical Hx: Other Musculskeletal Surgical Hx: No Pertinent History Female Surgical History: No Pertinent History Other Surgical History: gasterctomy d/t ulcers, uterine ablation, bladder sling - Social History Smoking Status: Current every day smoker How long have you smoked: 32 years Exposure to second hand smoke: No Alcohol: None Drug Use: marijuana - Social Determinants of Health Will the patient participate in the screening: Yes Do you worry about a steady place to live?: No In the past 12 months,have you had to go without utilities?: No Have you or anyone in your house had to go without enough: No Transportation Issues: No Has anyone in your support network made you feel unsafe?: No Does the patient want assistance with any of the above?: No - Physical Exam Vital Signs: Vital Signs - 24 hr Temp Pulse Resp BP BP Pulse Ox 05/11/24 21:02 98 05/11/24 21:00 76 14 103/75 97 05/11/24 20:31 73 22 134/80 96 05/11/24 20:15 72 17 110/75 97 05/11/24 20:10 68 17 110/75 96 05/11/24 20:00 68 12 97 05/11/24 19:50 78 26 H 95 05/11/24 19:40 71 14 97 05/11/24 19:33 73 20 96 05/11/24 19:00 70 14 120/89 96 05/11/24 18:30 72 18 127/81 98 05/11/24 18:07 75 11 L 140/94 97 05/11/24 18:06 97.7 F 90 16 140/94 98 General Appearance: no apparent distress, alert Neurologic Exam: alert, oriented x 3, cooperative, normal mood/affect, nml cerebellar function, nml station & gait, sensation nml, No motor deficits Eye Exam: PERRL/EOMI, eyes nml inspection Ears, Nose, Throat Exam: normal ENT inspection, TMs normal, pharynx normal, moist mucous membranes Neck Exam: normal inspection, non-tender, supple, full range of motion Respiratory Exam: normal breath sounds, lungs clear, No respiratory distress Cardiovascular Exam: regular rate/rhythm, normal heart sounds, normal peripheral pulses Gastrointestinal/Abdomen Exam: soft, normal bowel sounds, No tenderness, No mass Back Exam: normal inspection, normal range of motion, No CVA tenderness, No vertebral tenderness Extremity Exam: normal inspection, normal range of motion, pelvis stable Skin Exam: normal color, warm, dry, No rash Lymphatic Exam: No adenopathy Results - Labs Lab/Micro Results: Lab Results-Last 24 Hours 05/11/24 05/11/24 05/11/24 Range/Units 18:30 18:43 18:43 WBC 9.7 (3.98-10.04) x10^3/uL RBC 4.37 (3.93-5.22) x10^6/uL Hgb 13.0 (11.2-15.7) g/dL Hct 39.3 (34.1-44.9) % MCV 89.9 (79.4-94.8) fL MCH 29.7 (25.6-32.2) pg MCHC 33.1 (32.2-35.5) g/dL RDW 13.6 (11.7-14.4) % Plt Count 362 (182-369) x10^3/uL MPV 10.5 (9.4-12.3) fL Gran % 59.6 (34.0-71.1) % Immature Gran % (Auto) 0.3 (0.001-0.429) % Nucleat RBC Rel Count 0.0 (0.00-0.2) % Eos # (Auto) 0.12 (0.04-0.36) x10^3/uL Immature Gran # (Auto) 0.03 (0.001-0.031) x10^3u/L Absolute Lymphs (auto) 3.14 (1.18-3.74) x10^3/uL Absolute Monos (auto) 0.60 (0.24-0.86) x10^3/uL Absolute Nucleated RBC 0.00 (0.00-0.012) x10^3u/L Lymphocytes % 32.2 (19.3-51.7) % Monocytes % 6.2 (4.7-12.5) % Eosinophils % 1.2 (0.7-5.8) % Basophils % 0.5 (0.1-1.2) % Absolute Granulocytes 5.80 (1.56-6.13) x10^3/uL Basophils # 0.05 (0.01-0.08) x10^3/uL Sodium 141 (135-145) mmol/L Potassium 3.7 (3.5-5.1) mmol/L Chloride 107 (98-107) mmol/L Carbon Dioxide 27 (22-30) mmol/L Anion Gap 11.5 (5-15) MEQ/L BUN 22 H (7-17) mg/dL Creatinine 1.14 H (0.52-1.04) mg/dL Estimated GFR 59.4 ML/MIN Glucose 100 (74-106) mg/dL Lactic Acid 0.7 (0.4-2.0) Calcium 9.5 (8.4-10.2) mg/dL Total Bilirubin 0.40 (0.2-1.3) mg/dL AST 28 (14-36) U/L ALT 22 (0-35) U/L Alkaline Phosphatase 107 (38-126) U/L Serum Total Protein 7.1 (6.3-8.2) g/dL Albumin 4.0 (3.5-5.0) g/dL Lipase 54 (23-300) U/L Urine Color (Yellow) Urine Appearance (Clear) Urine pH (4.6-8.0) Ur Specific [place] (1.005-1.030) Urine Protein (Negative) Urine Glucose (UA) (Negative) mg/dL Urine Ketones (Negative) Urine Blood (Negative) Urine Nitrite (Negative) Urine Bilirubin (Negative) Urine Urobilinogen (0.2) mg/dL Ur Leukocyte Esterase (Negative) U Hyaline Cast (Auto) (0-2) /LPF Urine Microscopic RBC (0-5) /HPF Urine Microscopic WBC (0-5) /HPF Ur Epithelial Cells (None Seen) /HPF Urine Bacteria (None Seen) /HPF Urine Culture Reflexed (NO) Urine HCG, Qual (NEGATIVE) Influenza Type A Ag (NEGATIVE) Influenza Type B Ag (NEGATIVE) RSV (PCR) (NEGATIVE) SARS-CoV-2 (PCR) (NEGATIVE) 05/11/24 05/11/24 05/11/24 Range/Units 19:20 19:20 19:21 WBC (3.98-10.04) x10^3/uL RBC (3.93-5.22) x10^6/uL Hgb (11.2-15.7) g/dL Hct (34.1-44.9) % MCV (79.4-94.8) fL MCH (25.6-32.2) pg MCHC (32.2-35.5) g/dL RDW (11.7-14.4) % Plt Count (182-369) x10^3/uL MPV (9.4-12.3) fL Gran % (34.0-71.1) % Immature Gran % (Auto) (0.001-0.429) % Nucleat RBC Rel Count (0.00-0.2) % Eos # (Auto) (0.04-0.36) x10^3/uL Immature Gran # (Auto) (0.001-0.031) x10^3u/L Absolute Lymphs (auto) (1.18-3.74) x10^3/uL Absolute Monos (auto) (0.24-0.86) x10^3/uL Absolute Nucleated RBC (0.00-0.012) x10^3u/L Lymphocytes % (19.3-51.7) % Monocytes % (4.7-12.5) % Eosinophils % (0.7-5.8) % Basophils % (0.1-1.2) % Absolute Granulocytes (1.56-6.13) x10^3/uL Basophils # (0.01-0.08) x10^3/uL Sodium (135-145) mmol/L Potassium (3.5-5.1) mmol/L Chloride (98-107) mmol/L Carbon Dioxide (22-30) mmol/L Anion Gap (5-15) MEQ/L BUN (7-17) mg/dL Creatinine (0.52-1.04) mg/dL Estimated GFR ML/MIN Glucose (74-106) mg/dL Lactic Acid (0.4-2.0) Calcium (8.4-10.2) mg/dL Total Bilirubin (0.2-1.3) mg/dL AST (14-36) U/L ALT (0-35) U/L Alkaline Phosphatase (38-126) U/L Serum Total Protein (6.3-8.2) g/dL Albumin (3.5-5.0) g/dL Lipase (23-300) U/L Urine Color Yellow (Yellow) Urine Appearance Cloudy A (Clear) Urine pH 5.5 (4.6-8.0) Ur Specific [place] 1.025 (1.005-1.030) Urine Protein Negative (Negative) Urine Glucose (UA) Negative (Negative) mg/dL Urine Ketones Negative (Negative) Urine Blood Negative (Negative) Urine Nitrite Negative (Negative) Urine Bilirubin Negative (Negative) Urine Urobilinogen 0.2 (0.2) mg/dL Ur Leukocyte Esterase Trace A (Negative) U Hyaline Cast (Auto) NONE SEEN (0-2) /LPF Urine Microscopic RBC 0-2 (0-5) /HPF Urine Microscopic WBC 11-20 A (0-5) /HPF Ur Epithelial Cells Many A (None Seen) /HPF Urine Bacteria Many A (None Seen) /HPF Urine Culture Reflexed YES (NO) Urine HCG, Qual NEGATIVE (NEGATIVE) Influenza Type A Ag NEGATIVE (NEGATIVE) Influenza Type B Ag NEGATIVE (NEGATIVE) RSV (PCR) NEGATIVE (NEGATIVE) SARS-CoV-2 (PCR) NEGATIVE (NEGATIVE) - Radiology Impressions Radiology Exams & Impressions: Radiology Procedures Category Date Time Status ABDOMEN AND PELVIS W/0 CONTRAS [CT] Stat Exams 05/11/24 18:49 Completed A/P IMPRESSION: Significant sigmoid colon diverticulosis, with foci of extraluminal gas, and mild stranding, signifying early acute diverticulitis. Suspected focal thinning of antral wall anteriorly, just distal to prior intervention site, for further endoscopic correlation. Small 6 mm nodule at right lower lung lobe, for annual follow-up. Assessment/Plan (1) Acute diverticulitis Current Visit: Yes Status: Acute Assessment & Plan: 1. Continue IVF 2. Continue Levaquin (given in the ED) 3. NPO for now 4. No fevers 5. Zofran PRN Code(s): K57.92 - DVTRCLI OF INTEST, PART UNSP, W/O PERF OR ABSCESS W/O BLEED Telemedicine Encounter - Telemedicine Encounter Telemedicine Encounter: "The entirety of this encounter was performed via Telemedicine" This visit was performed using real-time audio and video connection between my l ocation and thepatients locationwith the assistance of a surrogateat the patients location. Written or verbal consent was obtained from the patient/guardian to perform this visit usingsynchr[employer]verture Servicestelemedicine technology. Any patient questions regarding the telemedicine interaction were answered.
[2024-05-11] MEDS: Levofloxacin 500MG/100ML D5W 500 MG/100 ML BAG IV STA (22:24)
[2024-05-11] MEDS: Sodium Chloride 0.9% 1000 ML 1,000 ML IV SCH (23:14)
[2024-05-11] MEDS ORDERED: PROVENTIL 2.5 MG/3 ML NEB IH PRN (23:46)
[2024-05-12] MEDS: Zofran 4 MG/2 ML VIAL IV PRN (01:14)
[2024-05-12 04:58] LABS: Mean Cell Volume 91.6 fL (79.4-94.8); Mean Corpuscular Hemoglobin 29.7 pg (25.6-32.2); Mean Corpuscular Hgb Concent. 32.4 g/dL (32.2-35.5); Mean Platelet Volume 10.8 fL (9.4-12.3); Platelet Count 296 x10^3/uL (182-369); Red Blood Count 4.04 x10^6/uL (3.93-5.22); Red Cell Distribution Width 13.7 % (11.7-14.4); White Blood Count 9.5 x10^3/uL (3.98-10.04)
[2024-05-12 05:20] LABS: ALBUMIN 3.3 g/dL (3.5-5.0); ANION GAP 13.2 MEQ/L (5-15); BILIRUBIN,TOTAL 0.4 mg/dL (0.2-1.3); Creatinine 1 0.92 mg/dL (0.52-1.04); EST GLOMERULAR FILTRATION RATE 76.8 ML/MIN; Potassium 3.9 mmol/L (3.5-5.1); Total Protein 5.7 g/dL (6.3-8.2)
--- NOTE | 2024-05-12 05:34 | PCM.NOTE ---
Date and Time: 05/12/24527 Subjective Assessment: Ms. Paige is a 49F with HTN, HLD, CKD and obesity admitted 05/11/24 for acute diverticulitis after presenting to ED with a four day history of abdominal pain, vomiting, chills, and diarrhea. Patient reports multiple episodes of nonprojectile, nonbilious vomiting without hematemesis and also having loose cheri jordon stool over the past two days and not being able to tolerate a diet. Upon presentation to the ED, vitals stable. CT of the abdomen demonstrating Significant sigmoid colon diverticulosis, with foci of extraluminal gas, and mild stranding, signifying early acute diverticulitis. Initial lab findings remarkable for mild MAGNUS and acidosis. Patient started on levaquin and Flagyl in ED. 05/12/24: Met with patient bedside. Endorses much improvement overnight. Vomiting/diarrhea resolved. Still some nausea. Tolerated CLD this morning. Discussed Ozempic side effects. Patient states since starting ozempic she has had MAGNUS twice. Advised holding Ozempic until she discusses with PCP. Patient states the ozempic is for weight loss - she is not a diabetic. Plan to continue to ADAT and IV abx. <CLEVE GALLAGHER - Last Filed: 05/12/24 12:23> Date and Time: 05/12/242132 <JOSE RICO - Last Filed: 05/12/24 21:34> - Review of Systems Constitutional: No Symptoms Eyes: No Symptoms Ears, Nose, & Throat: No Symptoms Respiratory: No Symptoms Cardiac: No Symptoms Abdominal/Gastrointestinal: Nausea Genitourinary Symptoms: No Symptoms Musculoskeletal: No Symptoms Skin: No Symptoms Neurological: No Symptoms Psychological: No Symptoms Endocrine: No Symptoms Hematologic/Lymphatic: No Symptoms Immunological/Allergic: No Symptoms <CLEVE GALLAGHER - Last Filed: 05/12/24 12:23> Objective Exam General Appearance: no apparent distress Neurologic Exam: alert, oriented x 3, cooperative Skin Exam: normal color Eye Exam: PERRL Ears, Nose, Throat Exam: normal ENT inspection Neck Exam: normal inspection Respiratory Exam: normal breath sounds, lungs clear Cardiovascular Exam: regular rate/rhythm, normal heart sounds Gastrointestinal/Abdomen Exam: soft, normal bowel sounds Extremity Exam: normal inspection Back Exam: normal inspection Pelvic Exam: deferred Rectal Exam: deferred <CLEVE GALLAGHER - Last Filed: 05/12/24 12:23> Objective Data Vital Signs: Vital Signs - 24 hr Temp Pulse Resp BP BP Pulse Ox 05/12/24 04:00 97.9 F 77 18 132/56 97 05/11/24 23:48 76 18 96 05/11/24 23:20 97.4 F 69 17 130/66 95 05/11/24 22:47 97.4 F 69 16 130/66 95 05/11/24 22:39 95 05/11/24 22:10 72 11 L 100/70 96 05/11/24 22:02 66 17 95 05/11/24 21:30 66 15 142/84 96 05/11/24 21:02 98 05/11/24 21:00 76 14 103/75 97 05/11/24 20:31 73 22 134/80 96 05/11/24 20:15 72 17 110/75 97 05/11/24 20:10 68 17 110/75 96 05/11/24 20:00 68 12 97 05/11/24 19:50 78 26 H 95 05/11/24 19:40 71 14 97 05/11/24 19:33 73 20 96 05/11/24 19:00 70 14 120/89 96 05/11/24 18:30 72 18 127/81 98 05/11/24 18:07 75 11 L 140/94 97 05/11/24 18:06 97.7 F 90 16 140/94 98 Pain Assessment - Last Documented Pain Intensity 0 Intake and Output: Intake & Output 05/09/24 05/10/24 05/11/24 05/12/24 11:59 11:59 11:59 11:59 Weight 95.7 kg Lab Results: Lab Results-Last 24 Hours 05/11/24 05/11/24 05/11/24 Range/Units 18:30 18:43 18:43 WBC 9.7 (3.98-10.04) x10^3/uL RBC 4.37 (3.93-5.22) x10^6/uL Hgb 13.0 (11.2-15.7) g/dL Hct 39.3 (34.1-44.9) % MCV 89.9 (79.4-94.8) fL MCH 29.7 (25.6-32.2) pg MCHC 33.1 (32.2-35.5) g/dL RDW 13.6 (11.7-14.4) % Plt Count 362 (182-369) x10^3/uL MPV 10.5 (9.4-12.3) fL Gran % 59.6 (34.0-71.1) % Immature Gran % (Auto) 0.3 (0.001-0.429) % Nucleat RBC Rel Count 0.0 (0.00-0.2) % Eos # (Auto) 0.12 (0.04-0.36) x10^3/uL Immature Gran # (Auto) 0.03 (0.001-0.031) x10^3u/L Absolute Lymphs (auto) 3.14 (1.18-3.74) x10^3/uL Absolute Monos (auto) 0.60 (0.24-0.86) x10^3/uL Absolute Nucleated RBC 0.00 (0.00-0.012) x10^3u/L Lymphocytes % 32.2 (19.3-51.7) % Monocytes % 6.2 (4.7-12.5) % Eosinophils % 1.2 (0.7-5.8) % Basophils % 0.5 (0.1-1.2) % Absolute Granulocytes 5.80 (1.56-6.13) x10^3/uL Basophils # 0.05 (0.01-0.08) x10^3/uL Sodium 141 (135-145) mmol/L Potassium 3.7 (3.5-5.1) mmol/L Chloride 107 (98-107) mmol/L Carbon Dioxide 27 (22-30) mmol/L Anion Gap 11.5 (5-15) MEQ/L BUN 22 H (7-17) mg/dL Creatinine 1.14 H (0.52-1.04) mg/dL Estimated GFR 59.4 ML/MIN Glucose 100 (74-106) mg/dL Lactic Acid 0.7 (0.4-2.0) Calcium 9.5 (8.4-10.2) mg/dL Total Bilirubin 0.40 (0.2-1.3) mg/dL AST 28 (14-36) U/L ALT 22 (0-35) U/L Alkaline Phosphatase 107 (38-126) U/L Serum Total Protein 7.1 (6.3-8.2) g/dL Albumin 4.0 (3.5-5.0) g/dL Lipase 54 (23-300) U/L Urine Color (Yellow) Urine Appearance (Clear) Urine pH (4.6-8.0) Ur Specific [place] (1.005-1.030) Urine Protein (Negative) Urine Glucose (UA) (Negative) mg/dL Urine Ketones (Negative) Urine Blood (Negative) Urine Nitrite (Negative) Urine Bilirubin (Negative) Urine Urobilinogen (0.2) mg/dL Ur Leukocyte Esterase (Negative) U Hyaline Cast (Auto) (0-2) /LPF Urine Microscopic RBC (0-5) /HPF Urine Microscopic WBC (0-5) /HPF Ur Epithelial Cells (None Seen) /HPF Urine Bacteria (None Seen) /HPF Urine Culture Reflexed (NO) Urine HCG, Qual (NEGATIVE) Influenza Type A Ag (NEGATIVE) Influenza Type B Ag (NEGATIVE) RSV (PCR) (NEGATIVE) SARS-CoV-2 (PCR) (NEGATIVE) 05/11/24 05/11/24 05/11/24 Range/Units 19:20 19:20 19:21 WBC (3.98-10.04) x10^3/uL RBC (3.93-5.22) x10^6/uL Hgb (11.2-15.7) g/dL Hct (34.1-44.9) % MCV (79.4-94.8) fL MCH (25.6-32.2) pg MCHC (32.2-35.5) g/dL RDW (11.7-14.4) % Plt Count (182-369) x10^3/uL MPV (9.4-12.3) fL Gran % (34.0-71.1) % Immature Gran % (Auto) (0.001-0.429) % Nucleat RBC Rel Count (0.00-0.2) % Eos # (Auto) (0.04-0.36) x10^3/uL Immature Gran # (Auto) (0.001-0.031) x10^3u/L Absolute Lymphs (auto) (1.18-3.74) x10^3/uL Absolute Monos (auto) (0.24-0.86) x10^3/uL Absolute Nucleated RBC (0.00-0.012) x10^3u/L Lymphocytes % (19.3-51.7) % Monocytes % (4.7-12.5) % Eosinophils % (0.7-5.8) % Basophils % (0.1-1.2) % Absolute Granulocytes (1.56-6.13) x10^3/uL Basophils # (0.01-0.08) x10^3/uL Sodium (135-145) mmol/L Potassium (3.5-5.1) mmol/L Chloride (98-107) mmol/L Carbon Dioxide (22-30) mmol/L Anion Gap (5-15) MEQ/L BUN (7-17) mg/dL Creatinine (0.52-1.04) mg/dL Estimated GFR ML/MIN Glucose (74-106) mg/dL Lactic Acid (0.4-2.0) Calcium (8.4-10.2) mg/dL Total Bilirubin (0.2-1.3) mg/dL AST (14-36) U/L ALT (0-35) U/L Alkaline Phosphatase (38-126) U/L Serum Total Protein (6.3-8.2) g/dL Albumin (3.5-5.0) g/dL Lipase (23-300) U/L Urine Color Yellow (Yellow) Urine Appearance Cloudy A (Clear) Urine pH 5.5 (4.6-8.0) Ur Specific [place] 1.025 (1.005-1.030) Urine Protein Negative (Negative) Urine Glucose (UA) Negative (Negative) mg/dL Urine Ketones Negative (Negative) Urine Blood Negative (Negative) Urine Nitrite Negative (Negative) Urine Bilirubin Negative (Negative) Urine Urobilinogen 0.2 (0.2) mg/dL Ur Leukocyte Esterase Trace A (Negative) U Hyaline Cast (Auto) NONE SEEN (0-2) /LPF Urine Microscopic RBC 0-2 (0-5) /HPF Urine Microscopic WBC 11-20 A (0-5) /HPF Ur Epithelial Cells Many A (None Seen) /HPF Urine Bacteria Many A (None Seen) /HPF Urine Culture Reflexed YES (NO) Urine HCG, Qual NEGATIVE (NEGATIVE) Influenza Type A Ag NEGATIVE (NEGATIVE) Influenza Type B Ag NEGATIVE (NEGATIVE) RSV (PCR) NEGATIVE (NEGATIVE) SARS-CoV-2 (PCR) NEGATIVE (NEGATIVE) 05/12/24 05/12/24 Range/Units 04:56 04:56 WBC 9.5 (3.98-10.04) x10^3/uL RBC 4.04 (3.93-5.22) x10^6/uL Hgb 12.0 (11.2-15.7) g/dL Hct 37.0 (34.1-44.9) % MCV 91.6 (79.4-94.8) fL MCH 29.7 (25.6-32.2) pg MCHC 32.4 (32.2-35.5) g/dL RDW 13.7 (11.7-14.4) % Plt Count 296 (182-369) x10^3/uL MPV 10.8 (9.4-12.3) fL Gran % (34.0-71.1) % Immature Gran % (Auto) (0.001-0.429) % Nucleat RBC Rel Count (0.00-0.2) % Eos # (Auto) (0.04-0.36) x10^3/uL Immature Gran # (Auto) (0.001-0.031) x10^3u/L Absolute Lymphs (auto) (1.18-3.74) x10^3/uL Absolute Monos (auto) (0.24-0.86) x10^3/uL Absolute Nucleated RBC (0.00-0.012) x10^3u/L Lymphocytes % (19.3-51.7) % Monocytes % (4.7-12.5) % Eosinophils % (0.7-5.8) % Basophils % (0.1-1.2) % Absolute Granulocytes (1.56-6.13) x10^3/uL Basophils # (0.01-0.08) x10^3/uL Sodium 141 (135-145) mmol/L Potassium 3.9 (3.5-5.1) mmol/L Chloride 110 H (98-107) mmol/L Carbon Dioxide 21 L (22-30) mmol/L Anion Gap 13.2 (5-15) MEQ/L BUN 19 H (7-17) mg/dL Creatinine 0.92 (0.52-1.04) mg/dL Estimated GFR 76.8 ML/MIN Glucose 80 (74-106) mg/dL Lactic Acid (0.4-2.0) Calcium 9.0 (8.4-10.2) mg/dL Total Bilirubin 0.40 (0.2-1.3) mg/dL AST 17 (14-36) U/L ALT 15 (0-35) U/L Alkaline Phosphatase 85 (38-126) U/L Serum Total Protein 5.7 L (6.3-8.2) g/dL Albumin 3.3 L (3.5-5.0) g/dL Lipase (23-300) U/L Urine Color (Yellow) Urine Appearance (Clear) Urine pH (4.6-8.0) Ur Specific [place] (1.005-1.030) Urine Protein (Negative) Urine Glucose (UA) (Negative) mg/dL Urine Ketones (Negative) Urine Blood (Negative) Urine Nitrite (Negative) Urine Bilirubin (Negative) Urine Urobilinogen (0.2) mg/dL Ur Leukocyte Esterase (Negative) U Hyaline Cast (Auto) (0-2) /LPF Urine Microscopic RBC (0-5) /HPF Urine Microscopic WBC (0-5) /HPF Ur Epithelial Cells (None Seen) /HPF Urine Bacteria (None Seen) /HPF Urine Culture Reflexed (NO) Urine HCG, Qual (NEGATIVE) Influenza Type A Ag (NEGATIVE) Influenza Type B Ag (NEGATIVE) RSV (PCR) (NEGATIVE) SARS-CoV-2 (PCR) (NEGATIVE) Radiology Exams: Radiology Procedures Category Date Time Status ABDOMEN AND PELVIS W/0 CONTRAS [CT] Stat Exams 05/11/24 18:49 Completed <CLEVE GALLAGHER - Last Filed: 05/12/24 12:23> Vital Signs: Vital Signs - 24 hr Temp Pulse Resp BP BP Pulse Ox 05/12/24 19:06 97.6 F 67 16 112/59 94 L 05/12/24 17:29 71 16 96 05/12/24 15:57 97.6 F 71 16 143/71 98 05/12/24 11:32 97.6 F 63 16 121/57 97 05/12/24 07:02 97.8 F 80 16 135/64 94 L 05/12/24 06:58 80 18 94 L 05/12/24 04:00 97.9 F 77 18 132/56 97 05/11/24 23:48 76 18 96 05/11/24 23:20 97.4 F 69 17 130/66 95 05/11/24 22:47 97.4 F 69 16 130/66 95 05/11/24 22:39 95 05/11/24 22:10 72 11 L 100/70 96 05/11/24 22:02 66 17 95 Pain Assessment - Last Documented Pain Intensity 0 Intake and Output: Intake & Output 05/10/24 05/11/24 05/12/24 05/13/24 11:59 11:59 11:59 11:59 Intake Total 0 720 Balance 0 720 Weight 95.7 kg Lab Results: Lab Results-Last 24 Hours 05/12/24 05/12/24 05/12/24 Range/Units 04:56 04:56 06:29 WBC 9.5 (3.98-10.04) x10^3/uL RBC 4.04 (3.93-5.22) x10^6/uL Hgb 12.0 (11.2-15.7) g/dL Hct 37.0 (34.1-44.9) % MCV 91.6 (79.4-94.8) fL MCH 29.7 (25.6-32.2) pg MCHC 32.4 (32.2-35.5) g/dL RDW 13.7 (11.7-14.4) % Plt Count 296 (182-369) x10^3/uL MPV 10.8 (9.4-12.3) fL Sodium 141 (135-145) mmol/L Potassium 3.9 (3.5-5.1) mmol/L Chloride 110 H (98-107) mmol/L Carbon Dioxide 21 L (22-30) mmol/L Anion Gap 13.2 (5-15) MEQ/L BUN 19 H (7-17) mg/dL Creatinine 0.92 (0.52-1.04) mg/dL Estimated GFR 76.8 ML/MIN Glucose 80 (74-106) mg/dL Hemoglobin A1c 5.05 (4.5-6.0) % Calcium 9.0 (8.4-10.2) mg/dL Total Bilirubin 0.40 (0.2-1.3) mg/dL AST 17 (14-36) U/L ALT 15 (0-35) U/L Alkaline Phosphatase 85 (38-126) U/L Serum Total Protein 5.7 L (6.3-8.2) g/dL Albumin 3.3 L (3.5-5.0) g/dL Radiology Exams: Radiology Procedures Category Date Time Status ABDOMEN AND PELVIS W/0 CONTRAS [CT] Stat Exams 05/11/24 18:49 Completed <JOSE RICO - Last Filed: 05/12/24 21:34> Assessment/Plan (1) Acute diverticulitis Current Visit: Yes Status: Acute Assessment & Plan: -CLD- adat -Supportive care with anti-emetics/pain control -Levaquin/Flagyl initiated in ED, will continue Code(s): K57.92 - DVTRCLI OF INTEST, PART UNSP, W/O PERF OR ABSCESS W/O BLEED (2) COPD (chronic obstructive pulmonary disease) Current Visit: Yes Status: Acute Assessment & Plan: -Supplemental oxygen as needed to maintain spo2 >88-92% - baseline RA -RT eval/follow -Nebs prn/INH proventil/advair/spiriva (3) Anxiety and depression Current Visit: Yes Status: Acute Assessment & Plan: -continue home meds Code(s): F41.9 - ANXIETY DISORDER, UNSPECIFIED; F32.A - DEPRESSION, UNSPECIFIED (4) Acute renal failure Current Visit: No Status: Acute Assessment & Plan: -Most likely secondary to GI loss -Hold ozempic -Hold losartan/HCTZ -monitor renal/lytes -Creat reviewed, initial creat at 1.14- now at baseline (5) HTN (hypertension) Current Visit: No Status: Chronic Assessment & Plan: -Stable resume home meds when able to tolerate Code(s): I10 - ESSENTIAL (PRIMARY) HYPERTENSION (6) Hyperlipidemia Current Visit: No Status: Chronic Assessment & Plan: -resume home meds Code(s): E78.5 - HYPERLIPIDEMIA, UNSPECIFIED (7) Obesity (BMI 30-39.9) Current Visit: No Status: Chronic Assessment & Plan: -Advised patient to hold Ozempic due to side effects - advised diet and exercise, can discuss other pharmaceutical weight loss options with her PCP Code(s): E66.9 - OBESITY, UNSPECIFIED <CLEVE GALLAGHER - Last Filed: 05/12/24 12:23> RANDI Encounter - RANDI Encounter Attestation RANDI Encounter Attestation: "IhavepersonallyseenandexamineCee,SERGE S andhavediscussed pertinent aspects of their care with Cleve Thomas agree with the history, physical exam (any modifications based on my personal exam will be noted below), assessment, and plan as outlined in original note. Please see immediately below for my summary of findings and additional assessment and plan along with any meaningful corrections/explanations to the Subjective/Objective portions of the RANDI note will be noted." My portion of the encounter took place via telemedicine. -Acute diverticulitis. Denied any abdominal pain today. Nausea improving, ADAT. On levaquin flagyl. <JOSE RICO - Last Filed: 05/12/24 21:34>
[2024-05-12] MEDS: Spiriva 18 Mcg/Cap Inhaler IH SCH (06:54)
[2024-05-12] MEDS: Advair Hfa 115/21 Common canister IH SCH (06:54)
[2024-05-12] MEDS ORDERED: LEVOFLOXACIN 750MG/150ML D5W 750 MG/150 ML BAG IV SCH (10:00)
[2024-05-12] MEDS: FLAGYL 500 MG IVPB 500 MG/100 ML BAG IV SCH (12:52)
[2024-05-12] MEDS ORDERED: NON-FORMULARY ITEM (Cyclobenzaprine Hcl [Cyclobenzaprine Hcl] 5 MG Tablet) PO PRN (14:03)
[2024-05-12] MEDS ORDERED: Nitrostat 0.4 MG Tablet SL PRN (14:03)
[2024-05-12] MEDS ORDERED: Cyclobenzaprine 10 MG PO PRN (14:35)
[2024-05-12] MEDS ORDERED: MEDICATION INTERVENTION MC SCH ×2 (14:45→15:00)
[2024-05-12] MEDS: Toprol-Xl 25MG Tablets PO SCH (15:04)
[2024-05-12] MEDS: ECOTRIN 81 MG PO SCH (15:04)
[2024-05-12] MEDS: Wellbutrin XL 150 MG PO SCH (15:06)
[2024-05-12] MEDS: Imdur 60MG PO SCH (15:06)
[2024-05-12] MEDS: BUSPAR 5 MG PO SCH (15:11)
[2024-05-12] MEDS: Levaquin 250MG/50ML D5W 250 MG/50 ML BAG IV SCH (21:00)
[2024-05-12] MEDS: MIRTAZAPINE PO SCH (21:01)
[2024-05-12] MEDS: Ranexa 500 MG PO SCH (21:01)
[2024-05-12] MEDS: LYRICA 150MG PO SCH (21:02)
[2024-05-12] MEDS ORDERED: NON-FORMULARY ITEM (Budesonide/Formoterol Fumarate [Budesonide-Formoterol 160-4.5] 10.2 GM IH SCH (22:00)
[2024-05-12] MEDS ORDERED: NON-FORMULARY ITEM (Ranolazine [Ranolazine Er] 1,000 MG Tab.Er.12h) PO SCH (22:00)
[2024-05-12] MEDS ORDERED: NON-FORMULARY ITEM (Prazosin Hcl [Prazosin Hcl] 1 MG Capsule) PO SCH (22:00)
[2024-05-12] MEDS ORDERED: Levofloxacin 500MG/100ML D5W 500 MG/100 ML BAG IV ONE (22:05)
[2024-05-12] MEDS: Levofloxacin 500MG/100ML D5W 500 MG/100 ML BAG IV SCH (22:06)
--- NOTE | 2024-05-13 05:15 | PCM.DS ---
Discharge Summary Date of Admission: 05/11/24 21:42 Date of Discharge: 05/13/24 Admitting Physician: OSWALDO DELATORRE MD Primary Care Provider: CHI JONES Allergies Allergies diltiazem Allergy (Unknown, Verified 05/11/24 18:11) Hospital Summary - Hospital Course Hospital Course: Ms. Paige is a 49F with HTN, HLD, CKD and obesity admitted 05/11/24 for acute diverticulitis after presenting to ED with a four day history of abdominal pain, vomiting, chills, and diarrhea. Patient reports multiple episodes of nonprojectile, nonbilious vomiting without hematemesis and also having loose watery stool over the past two days and not being able to tolerate a diet. Upon presentation to the ED, vitals stable. CT of the abdomen demonstrating Significant sigmoid colon diverticulosis, with foci of extraluminal gas, and mild stranding, signifying early acute diverticulitis. Initial lab findings remarkable for mild MAGNUS and acidosis. Patient started on levaquin and Flagyl in ED. MAGNUS has resolved. Patient tolerating a diet. No Vomiting, diarrhea, or abdominal pain. Advised patient hold ozempic and discuss other options with PCP. Can discharge with Augmentin and follow up OP with PCP. Potassium level low this morning, will replenish prior to d/c with recheck. Patient to follow up with pcp. Discharge Note New Diagnosis: Acute diverticulitis New Medications: Augmentin Follow Up: PCP Latest Assessment & Plan (1) Acute diverticulitis Current Visit: Yes Status: Acute Assessment & Plan: -CLD- adat -Supportive care with anti-emetics/pain control -Levaquin/Flagyl initiated in ED, will continue Code(s): K57.92 - DVTRCLI OF INTEST, PART UNSP, W/O PERF OR ABSCESS W/O BLEED (2) COPD (chronic obstructive pulmonary disease) Current Visit: Yes Status: Acute Assessment & Plan: -Supplemental oxygen as needed to maintain spo2 >88-92% - baseline RA -RT eval/follow -Nebs prn/INH proventil/advair/spiriva (3) Anxiety and depression Current Visit: Yes Status: Acute Assessment & Plan: -continue home meds Code(s): F41.9 - ANXIETY DISORDER, UNSPECIFIED; F32.A - DEPRESSION, UNSPECIFIED (4) Acute renal failure Current Visit: No Status: Acute Assessment & Plan: -Most likely secondary to GI loss -Hold ozempic -Hold losartan/HCTZ -monitor renal/lytes -Creat reviewed, initial creat at 1.14- now at baseline (5) HTN (hypertension) Current Visit: No Status: Chronic Assessment & Plan: -Stable resume home meds when able to tolerate Code(s): I10 - ESSENTIAL (PRIMARY) HYPERTENSION (6) Hyperlipidemia Current Visit: No Status: Chronic Assessment & Plan: -resume home meds Code(s): E78.5 - HYPERLIPIDEMIA, UNSPECIFIED (7) Obesity (BMI 30-39.9) Current Visit: No Status: Chronic Assessment & Plan: -Advised patient to hold Ozempic due to side effects - advised diet and exercise, can discuss other pharmaceutical weight loss options with her PCP Code(s): E66.9 - OBESITY, UNSPECIFIED I spent 35 minutes [id number] with the patient on the day of discharge performing discharge exam, discussing hospital stay and discharge instructions with patient and caregivers, preparation of discharge records, prescriptions & referral forms and addressing any questions/concerns the patient had as documented above. - Vitals & Intake/Output Vital Signs: Vital Signs Temperature 97.0 F 05/13/24 04:00 Pulse Rate 71 05/13/24 04:00 Respiratory Rate 16 05/13/24 04:00 Blood Pressure 107/63 05/13/24 04:00 O2 Sat by Pulse Oximetry 96 05/13/24 04:00 Intake & Output: Intake & Output 05/10/24 05/11/24 05/12/24 05/13/24 11:59 11:59 11:59 11:59 Intake Total 0 720 Balance 0 720 Weight 95.7 kg - Lab Result Diagrams: 05/13/24 05:10 05/13/24 05:10 Lab Results-Last 24 Hrs: Lab Results-Last 24 Hours 05/12/24 05/12/24 05/12/24 Range/Units 04:56 04:56 06:29 WBC 9.5 (3.98-10.04) x10^3/uL RBC 4.04 (3.93-5.22) x10^6/uL Hgb 12.0 (11.2-15.7) g/dL Hct 37.0 (34.1-44.9) % MCV 91.6 (79.4-94.8) fL MCH 29.7 (25.6-32.2) pg MCHC 32.4 (32.2-35.5) g/dL RDW 13.7 (11.7-14.4) % Plt Count 296 (182-369) x10^3/uL MPV 10.8 (9.4-12.3) fL Sodium 141 (135-145) mmol/L Potassium 3.9 (3.5-5.1) mmol/L Chloride 110 H (98-107) mmol/L Carbon Dioxide 21 L (22-30) mmol/L Anion Gap 13.2 (5-15) MEQ/L BUN 19 H (7-17) mg/dL Creatinine 0.92 (0.52-1.04) mg/dL Estimated GFR 76.8 ML/MIN Glucose 80 (74-106) mg/dL Hemoglobin A1c 5.05 (4.5-6.0) % Calcium 9.0 (8.4-10.2) mg/dL Total Bilirubin 0.40 (0.2-1.3) mg/dL AST 17 (14-36) U/L ALT 15 (0-35) U/L Alkaline Phosphatase 85 (38-126) U/L Serum Total Protein 5.7 L (6.3-8.2) g/dL Albumin 3.3 L (3.5-5.0) g/dL Micro Results-Entire Visit: Microbiology 05/11/24 19:21 Urine Culture - Preliminary Clean Catch Midstream NO GROWTH TO DATE - Radiology Exams Ordered Rad Exams-Entire Visit: Radiology Procedures Category Date Time Status ABDOMEN AND PELVIS W/0 CONTRAS [CT] Stat Exams 05/11/24 18:49 Completed - Procedures and Test Procedures and Tests throughout Hospitalization: Therapy Orders & Screens 05/11/24 22:59 Smoking Cessation Education ONCE Comment: Diagnosis: Diverticulitis/gastroenteritis Smoking Status: Current every day smoker How long have you smoked: 32 Have you smoked in the past 12 months: Yes Approximately how many cigarettes per day: 10 Do you dip or chew tobacco: No 05/11/24 23:46 Respiratory Therapy Assessment DAILY Comment: Diagnosis: Diverticulitis/gastroenteritis 05/11/24 23:47 Respiratory MDI BID Comment: Diagnosis: Diverticulitis/gastroenteritis Discharge Exam General Appearance: no apparent distress Neurologic Exam: alert, oriented x 3, cooperative Eye Exam: PERRL Ears, Nose, Throat Exam: normal ENT inspection Neck Exam: normal inspection Respiratory Exam: normal breath sounds, lungs clear Cardiovascular Exam: regular rate/rhythm, normal heart sounds Gastrointestinal/Abdomen Exam: soft, normal bowel sounds Pelvic Exam: deferred Rectal Exam: deferred Back Exam: normal inspection Extremity Exam: normal inspection Skin Exam: normal color Final Diagnosis/Problem List - Final Discharge Diagnosis/Problem (1) Acute diverticulitis Current Visit: Yes Status: Acute Code(s): K57.92 - DVTRCLI OF INTEST, PART UNSP, W/O PERF OR ABSCESS W/O BLEED (2) COPD (chronic obstructive pulmonary disease) Current Visit: Yes Status: Chronic (3) Anxiety and depression Current Visit: Yes Status: Chronic Code(s): F41.9 - ANXIETY DISORDER, UNSPECIFIED; F32.A - DEPRESSION, UNSPECIFIED (4) Acute renal failure Current Visit: No Status: Resolved (5) HTN (hypertension) Current Visit: No Status: Chronic Code(s): I10 - ESSENTIAL (PRIMARY) HYPERTENSION (6) Hyperlipidemia Current Visit: No Status: Chronic Code(s): E78.5 - HYPERLIPIDEMIA, UNSPECIFIED (7) Obesity (BMI 30-39.9) Current Visit: No Status: Chronic Code(s): E66.9 - OBESITY, UNSPECIFIED - Discharge Disposition: Home, Self-Care Condition: Stable Prescriptions: New Amox Tr/Potass Clav. 875 mg [Augmentin 875-125 Tablet] 875 mg PO BID 10 Days #20 tablet Lactobacillus Acidophilus 1 each PO DAILY 30 Days #30 cap Continue Prazosin HCl 1 mg PO HS Mirtazapine 15 mg PO HS buPROPion HCL [Bupropion Xl] 300 mg PO DAILY Isosorbide Mononitrate 60 mg [Imdur 60MG] 120 mg PO DAILY Nitroglycerin 0.4 mg Tablet [Nitrostat 0.4 MG Tablet] 0.4 mg SL UD PRN PRN Reason: Chest Pain Buspirone HCl 5 mg [Buspar 5 mg] 10 mg PO TID Aspirin EC 81 mg [Ecotrin 81 mg] 81 mg PO DAILY Pregabalin [Lyrica 150Mg] 150 mg PO BID PANTOPRAZOLE 40 mg Tablet [Protonix 40MG Tablet] 40 mg PO QAM Cyclobenzaprine HCl 5 mg PO TIDPRN PRN PRN Reason: Muscle Spasms/Pain Metoprolol Succinate 25 mg Xl* [Toprol-Xl 25MG Tablets] 12.5 mg PO DAILY Atorvastatin Calcium [Lipitor] 80 mg PO DAILY Ranolazine [Ranolazine ER] 1,000 mg PO BID Losartan/Hydrochlorothiazide [Losartan-Hctz 100-12.5 mg Tab] 1 each PO DAILY Budesonide/Formoterol Fumarate [Budesonide-Formoterol 160-4.5] 1 inh IH BID Follow up with: CHI JONES [Primary Care Provider] -
[2024-05-13 05:17] LABS: Absolute Neutrophil Ct (ANC) 4.61 x10^3/uL (1.56-6.13); BASOPHIL % 0.5 % (0.1-1.2); Basophil (Absolute #) 0.04 x10^3/uL (0.01-0.08); Eosinophil % 2.3 % (0.7-5.8); Eosinophil (Absolute #) 0.19 x10^3/uL (0.04-0.36); Hematocrit 34.1 % (34.1-44.9); Hemoglobin 11.3 g/dL (11.2-15.7); IMMATURE GRAN # 0.04 x10^3u/L (0.001-0.031); IMMATURE GRAN % 0.5 % (0.001-0.429); Lymphocyte (Absolute #) 2.83 x10^3/uL (1.18-3.74); Lymphocytes % 34.5 % (19.3-51.7); Mean Cell Volume 91.2 fL (79.4-94.8); Mean Corpuscular Hemoglobin 30.2 pg (25.6-32.2); Mean Corpuscular Hgb Concent. 33.1 g/dL (32.2-35.5); Mean Platelet Volume 10.5 fL (9.4-12.3); Monocytes % 6.1 % (4.7-12.5); Neutrophil % 56.1 % (34.0-71.1); Platelet Count 296 x10^3/uL (182-369); Red Blood Count 3.74 x10^6/uL (3.93-5.22); Red Cell Distribution Width 13.7 % (11.7-14.4); White Blood Count 8.2 x10^3/uL (3.98-10.04)
[2024-05-13 05:41] LABS: ALBUMIN 3.2 g/dL (3.5-5.0); BILIRUBIN,TOTAL 0.3 mg/dL (0.2-1.3); Creatinine 1 0.96 mg/dL (0.52-1.04); Total Protein 5.9 g/dL (6.3-8.2)
[2024-05-13 05:44] LABS: Potassium 3.2 mmol/L (3.5-5.1)
[2024-05-13 05:50] LABS: ANION GAP 9.2 MEQ/L (5-15)
[2024-05-13 07:49] VITALS: PULSE 75
[2024-05-13] MEDS: ZOCOR 20MG PO SCH (08:33)
[2024-05-13] MEDS: Protonix 40MG Tablet PO SCH (08:34)
[2024-05-13] MEDS ORDERED: NON-FORMULARY ITEM (Atorvastatin Calcium [Lipitor] 80 MG Tablet) PO SCH (10:00)
[2024-05-13] MEDS ORDERED: BUPROPION HCL 300 MG PO SCH (10:00)
[2024-05-13] MEDS: Klor Con PO ONE (10:58)
[2024-05-13 11:33] VITALS: BP 108/57; RESP 16; TEMP 97.7; O2SAT 95
== END 2024-05-13 15:15 | disposition home or self-care (01) ==
LOC: ED 18:01 → MED SURG 21:42
PROVIDERS: ADMIT Student in an Organized Health Care Education/Training Program; ATTEND Student in an Organized Health Care Education/Training Program
DX: K57.92 Diverticulitis of intestine, part unspecified, without perforation or abscess without bleeding (principal); J44.9 Chronic obstructive pulmonary disease, unspecified; I12.9 Hypertensive chronic kidney disease with stage 1 through stage 4 chronic kidney disease, or unspecified chronic kidney disease; N18.9 Chronic kidney disease, unspecified; E78.5 Hyperlipidemia, unspecified; F41.9 Anxiety disorder, unspecified; N17.9 Acute kidney failure, unspecified; E66.9 Obesity, unspecified; F17.200 Nicotine dependence, unspecified, uncomplicated; Z79.899 Other long term (current) drug therapy
CPT/HCPCS: 0241U; 36415; 74176; 80053; 81001; 81025; 83036; 83605; 83690; 84132; 85025; 85027; 87086; 94640; 94760; 96360; 96365; 96374; 96375; 99285; G0378; J1956; J2405; Q3014; A9270-GY

== ENCOUNTER 2024-07-20 12:13 | Emergency (ER) | payer OTHER ==
--- NOTE | 2024-07-20 13:06 | ERPHSYRPT ---
- History of Present Illness Time Seen by Provider: 07/20/24 13:06 Historian: patient Exam Limitations: no limitations Physician History: This is an obese 49-year-old white female patient who arrives by private vehicle vomiting for 3 days. She does not have chest pain. She does not have a cough. She does not have shortness of breath. She denies abdominal pain. She is concerned she may have a urinary tract infection. 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 She is not having any diarrhea symptoms at this time. Timing/Duration: day(s) (3), worse Pain Radiation: no radiation Severity of Pain-Max: none Severity of Pain-Current: none Modifying Factors: Improves With: vomiting Associated Symptoms: loss of appetite, nausea, vomiting, weakness, No chest pain, No diarrhea, No shortness of breath Previous symptoms: no recent treatment Allergies/Adverse Reactions: diltiazem Allergy (Unknown, Verified 07/20/24 13:09) Home Medications: Aspirin EC 81 mg [Ecotrin 81 mg] 81 mg PO DAILY 03/28/24 [History] Atorvastatin Calcium [Lipitor] 80 mg PO DAILY 03/28/24 [History] Budesonide/Formoterol Fumarate [Budesonide-Formoterol 160-4.5] 1 inh IH BID 03/28/24 [History] Buspirone HCl 5 mg [Buspar 5 mg] 10 mg PO TID 03/28/24 [History] Cyclobenzaprine HCl 5 mg PO TIDPRN PRN 03/28/24 [History] Isosorbide Mononitrate 60 mg [Imdur 60MG] 120 mg PO DAILY 03/28/24 [History] Losartan/Hydrochlorothiazide [Losartan-Hctz 100-12.5 mg Tab] 1 each PO DAILY 03/28/24 [History] Metoprolol Succinate 25 mg Xl* [Toprol-Xl 25MG Tablets] 12.5 mg PO DAILY 03/28/24 [History] Mirtazapine 15 mg PO HS 03/28/24 [History] Nitroglycerin 0.4 mg Tablet [Nitrostat 0.4 MG Tablet] 0.4 mg SL UD PRN 03/28/24 [History] PANTOPRAZOLE 40 mg Tablet [Protonix 40MG Tablet] 40 mg PO QAM 03/28/24 [History] Prazosin HCl 1 mg PO HS 03/28/24 [History] Pregabalin [Lyrica 150Mg] 150 mg PO BID 03/28/24 [History] Ranolazine [Ranolazine ER] 1,000 mg PO BID 03/28/24 [History] buPROPion HCL [Bupropion Xl] 300 mg PO DAILY 03/28/24 [History] Hydrocodone/Acetaminophen [Hydrocodone-Acetamin 5-325 mg] 1 each PO TID 07/20/24 [History] Hx Tetanus, Diphtheria Vaccination/Date Given: Yes Hx Influenza Vaccination/Date Given: No Hx Pneumococcal Vaccination/Date Given: No Travel Risk - Emerging Infectious Disease Are you exhibiting symptoms associated with any current EIDs: Yes Symptoms: Diarrhea, Vomitting - Review of Systems Constitutional: Weakness Eyes: No Symptoms Ears, Nose, & Throat: No Symptoms Respiratory: No Symptoms Cardiac: No Symptoms Abdominal/Gastrointestinal: Nausea, Vomiting, Diarrhea, Appetite Changes, No Abdominal Pain, No Constipation Genitourinary Symptoms: No Symptoms Musculoskeletal: No Symptoms Skin: No Symptoms Neurological: No Symptoms Psychological: No Symptoms Endocrine: No Symptoms Hematologic/Lymphatic: No Symptoms Immunological/Allergic: No Symptoms All Other Systems: Reviewed and Negative - Past Medical History Pertinent Past Medical History: Yes Neurological History: TIA ENT History: No Pertinent History Cardiac History: Coronary Artery Disease, Hypertension Respiratory History: Asthma, Bronchitis, COPD, Emphysema Endocrine Medical History: Diabetes Type II Musculoskeletal History: Degenerative Disk Disease, Other GI Medical History: Ulcer History: No Pertinent History Psycho-Social History: Anxiety, Depression Female Reproductive Disorders: Endometriosis Other Medical History: carpal tunnel bilateral wrists - Past Surgical History Past Surgical History: Yes Neuro Surgical History: No Pertinent History Cardiac: Cardiac Catheterization Respiratory: No Pertinent History Gastrointestinal: Cholecystectomy Genitourinary: Other Musculoskeletal: No Pertinent History Female Surgical History: No Pertinent History Other Surgical History: gasterctomy d/t ulcers, uterine ablation, bladder sling - Female History Hx Last Menstrual Period: ablation - Social History Smoking Status: Current every day smoker How long have you smoked: 32 Exposure to second hand smoke: Yes Drug Use: marijuana - Social Determinants of Health Will the patient participate in the screening: Yes Do you worry about a steady place to live?: No In the past 12 months,have you had to go without utilities?: No Transportation Issues: No Has anyone in your support network made you feel unsafe?: No Have you or anyone in your house had to go without enough: No - Nursing Vital Signs Nursing Vital Signs: Initial Vital Signs Temperature 97.2 F 07/20/24 13:00 Pulse Rate 79 07/20/24 13:00 Respiratory Rate 15 07/20/24 13:00 Blood Pressure 132/82 07/20/24 13:00 O2 Sat by Pulse Oximetry 97 07/20/24 13:00 Pain Scale Pain Intensity 0 - Physical Exam General Appearance: no apparent distress, alert, anxiety Eye Exam: PERRL/EOMI, eyes nml inspection Ears, Nose, Throat Exam: normal ENT inspection, moist mucous membranes Neck Exam: normal inspection, non-tender, supple, full range of motion Respiratory Exam: normal breath sounds, lungs clear, airway intact, No chest tenderness, No respiratory distress Cardiovascular Exam: regular rate/rhythm, normal heart sounds, normal peripheral pulses Gastrointestinal/Abdomen Exam: soft, normal bowel sounds, No tenderness Pelvic Exam: not done Rectal Exam: not done Back Exam: normal inspection, normal range of motion, No CVA tenderness, No vertebral tenderness Extremity Exam: normal inspection, normal range of motion, pelvis stable Neurologic Exam: alert, oriented x 3, cooperative, community associate II-XII nml as tested, nml cerebellar function, nml station & gait, sensation nml Skin Exam: normal color, warm, dry Lymphatic Exam: No adenopathy SpO2 Interpretation: normal - Course Nursing assessment & vital signs reviewed: Yes Ordered Tests: Active Orders 24 hr Category Date Time Status IV Insertion STAT Care 07/20/24 13:06 Active AMYLASE Stat Lab 07/20/24 13:25 Completed CBC W DIFF Stat Lab 07/20/24 13:25 Completed CMP Stat Lab 07/20/24 13:25 Completed CULTURE,URINE Stat Lab 07/20/24 13:09 Received LIPASE Stat Lab 07/20/24 13:25 Completed Lactic Acid Stat Lab 07/20/24 13:06 Ordered MONO SCREEN Stat Lab 07/20/24 13:25 Completed UA W/RFX UR CULTURE Stat Lab 07/20/24 13:09 Completed Medication Summary Discontinued Medications Generic Name Dose Route Start Last Admin Trade Name Dilip PRN Reason Stop Dose Admin Sodium Chloride 1,000 mls @ 999 mls/hr 07/20/24 13:06 07/20/24 13:12 Sodium Chloride 0.9% 1000 Ml IV 07/20/24 14:06 999 mls/hr .Q1H1M STA Administration Sodium Chloride Confirm 07/20/24 13:10 Sodium Chloride 0.9% 1000 Ml Administered 07/20/24 13:11 Dose 1,000 mls @ ud .ROUTE .STK-MED ONE Ondansetron HCl 4 mg 07/20/24 13:06 07/20/24 13:12 Ondansetron Hcl 4 Mg/2 Ml Vial IV 07/20/24 13:07 4 mg STAT ONE Administration Ondansetron HCl Confirm 07/20/24 13:10 Ondansetron Hcl 4 Mg/2 Ml Vial Administered 07/20/24 13:11 Dose 4 mg .ROUTE .STK-MED ONE Pantoprazole Sodium 40 mg 07/20/24 13:06 07/20/24 13:12 Pantoprazole 40 Mg Vial IV 07/20/24 13:07 40 mg STAT ONE Administration Pantoprazole Sodium Confirm 07/20/24 13:10 Pantoprazole 40 Mg Vial Administered 07/20/24 13:11 Dose 40 mg IV .STK-MED ONE Lab/Rad Data: Laboratory Result Diagrams 07/20/24 13:25 07/20/24 13:25 Laboratory Results 07/20/24 07/20/24 07/20/24 Range/Units 13:25 13:25 13:25 WBC (3.98-10.04) x10^3/uL RBC (3.93-5.22) x10^6/uL Hgb (11.2-15.7) g/dL Hct (34.1-44.9) % MCV (79.4-94.8) fL MCH (25.6-32.2) pg MCHC (32.2-35.5) g/dL RDW (11.7-14.4) % Plt Count (182-369) x10^3/uL MPV (9.4-12.3) fL Gran % (34.0-71.1) % Immature Gran % (Auto) (0.001-0.429) % Nucleat RBC Rel Count (0.00-0.2) % Eos # (Auto) (0.04-0.36) x10^3/uL Immature Gran # (Auto) (0.001-0.031) x10^3u/L Absolute Lymphs (auto) (1.18-3.74) x10^3/uL Absolute Monos (auto) (0.24-0.86) x10^3/uL Absolute Nucleated RBC (0.00-0.012) x10^3u/L Lymphocytes % (19.3-51.7) % Monocytes % (4.7-12.5) % Eosinophils % (0.7-5.8) % Basophils % (0.1-1.2) % Absolute Granulocytes (1.56-6.13) x10^3/uL Basophils # (0.01-0.08) x10^3/uL Sodium 136 (135-145) mmol/L Potassium 3.9 (3.5-5.1) mmol/L Chloride 102 (98-107) mmol/L Carbon Dioxide 24 (22-30) mmol/L Anion Gap 14.2 (5-15) MEQ/L BUN 23 H (7-17) mg/dL Creatinine 1.33 H (0.52-1.04) mg/dL Estimated GFR 49.4 ML/MIN Glucose 104 (74-106) mg/dL Calcium 10.0 (8.4-10.2) mg/dL Total Bilirubin 0.90 (0.2-1.3) mg/dL AST 37 H (14-36) U/L ALT 41 H (0-35) U/L Alkaline Phosphatase 111 (38-126) U/L Serum Total Protein 8.1 (6.3-8.2) g/dL Albumin 4.9 (3.5-5.0) g/dL Amylase 57 (30-110) U/L Lipase 49 (23-300) U/L Urine Color (Yellow) Urine Appearance (Clear) Urine pH (4.6-8.0) Ur Specific [place] (1.005-1.030) Urine Protein (Negative) Urine Glucose (UA) (Negative) mg/dL Urine Ketones (Negative) Urine Blood (Negative) Urine Nitrite (Negative) Urine Bilirubin (Negative) Urine Urobilinogen (0.2) mg/dL Ur Leukocyte Esterase (Negative) U Hyaline Cast (Auto) (0-2) /LPF Urine Microscopic RBC (0-5) /HPF Urine Microscopic WBC (0-5) /HPF Ur Epithelial Cells (None Seen) /HPF Urine Bacteria (None Seen) /HPF Urine Culture Reflexed (NO) Monoscreen NEGATIVE (NEGATIVE) Influenza Type A Ag NEGATIVE (NEGATIVE) Influenza Type B Ag NEGATIVE (NEGATIVE) RSV (PCR) NEGATIVE (NEGATIVE) SARS-CoV-2 (PCR) NEGATIVE (NEGATIVE) 07/20/24 07/20/24 Range/Units 13:25 13:09 WBC 9.2 (3.98-10.04) x10^3/uL RBC 4.92 (3.93-5.22) x10^6/uL Hgb 14.3 (11.2-15.7) g/dL Hct 42.7 (34.1-44.9) % MCV 86.8 (79.4-94.8) fL MCH 29.1 (25.6-32.2) pg MCHC 33.5 (32.2-35.5) g/dL RDW 13.2 (11.7-14.4) % Plt Count 328 (182-369) x10^3/uL MPV 10.4 (9.4-12.3) fL Gran % 66.4 (34.0-71.1) % Immature Gran % (Auto) 0.4 (0.001-0.429) % Nucleat RBC Rel Count 0.0 (0.00-0.2) % Eos # (Auto) 0.10 (0.04-0.36) x10^3/uL Immature Gran # (Auto) 0.04 H (0.001-0.031) x10^3u/L Absolute Lymphs (auto) 2.25 (1.18-3.74) x10^3/uL Absolute Monos (auto) 0.65 (0.24-0.86) x10^3/uL Absolute Nucleated RBC 0.00 (0.00-0.012) x10^3u/L Lymphocytes % 24.4 (19.3-51.7) % Monocytes % 7.0 (4.7-12.5) % Eosinophils % 1.1 (0.7-5.8) % Basophils % 0.7 (0.1-1.2) % Absolute Granulocytes 6.12 (1.56-6.13) x10^3/uL Basophils # 0.06 (0.01-0.08) x10^3/uL Sodium (135-145) mmol/L Potassium (3.5-5.1) mmol/L Chloride (98-107) mmol/L Carbon Dioxide (22-30) mmol/L Anion Gap (5-15) MEQ/L BUN (7-17) mg/dL Creatinine (0.52-1.04) mg/dL Estimated GFR ML/MIN Glucose (74-106) mg/dL Calcium (8.4-10.2) mg/dL Total Bilirubin (0.2-1.3) mg/dL AST (14-36) U/L ALT (0-35) U/L Alkaline Phosphatase (38-126) U/L Serum Total Protein (6.3-8.2) g/dL Albumin (3.5-5.0) g/dL Amylase (30-110) U/L Lipase (23-300) U/L Urine Color Dark Yellow A (Yellow) Urine Appearance Cloudy A (Clear) Urine pH 5.0 (4.6-8.0) Ur Specific [place] 1.025 (1.005-1.030) Urine Protein 30 (Negative) Urine Glucose (UA) Negative (Negative) mg/dL Urine Ketones Trace A (Negative) Urine Blood Trace (Negative) Urine Nitrite Negative (Negative) Urine Bilirubin Moderate A (Negative) Urine Urobilinogen 1.0 A (0.2) mg/dL Ur Leukocyte Esterase Large A (Negative) U Hyaline Cast (Auto) 3-5 A (0-2) /LPF Urine Microscopic RBC 3-5 (0-5) /HPF Urine Microscopic WBC >100 A (0-5) /HPF Ur Epithelial Cells Many A (None Seen) /HPF Urine Bacteria Many A (None Seen) /HPF Urine Culture Reflexed YES (NO) Monoscreen (NEGATIVE) Influenza Type A Ag (NEGATIVE) Influenza Type B Ag (NEGATIVE) RSV (PCR) (NEGATIVE) SARS-CoV-2 (PCR) (NEGATIVE) - Progress Progress: improved Progress Note: 07/20/24 13:17 My medical decision making and the assignment of moderate complexity to this patient's medical issue today is based on review of the patient's past medical history, review of the patient's medication list, reviewed patient drug allergy list, history present illness or physical findings on examination. The workup in this patient includes placement of intravenous line, infusion of normal saline solution, infusion of Protonix intravenously, infusion of Zofran intravenously, CBC, CMP, amylase, lipase, urinalysis, viral swabs and monotest. Differential diagnosis includes was not limited to viral illness, dehydration, urinary tract infection, electrolyte abnormalities 07/20/24 14:40 I interpreted the patient's laboratory data results. Based on the laboratory data results, the patient does have mild dehydration and a significant urinary tract infection. Counseled pt/family regarding: lab results, diagnosis Medical Desision Making - Diagnostic Testing Diagnostic test were ordered, analyzed, and reviewed by me: Yes - Risk of complications The pt has a mod risk of morbidity or mortality based on: Need for prescription drug management - Departure Departure Disposition: Home Clinical Impression: Mild dehydration, Urinary tract infection Condition: Stable Critical Care Time: No Referrals: CHI JONES [Primary Care Provider] - Follow up/PCP as directed Additional Instructions: Drink plenty of clear liquids before advancing your diet. Avoid fatty greasy spicy foods. Take your antibiotics and other medications as prescribed. Call your primary care provider tomorrow, 07/21/2024, to make arrangement for follow-up appointment for further evaluation management. Prescriptions: Ondansetron ODT 4 MG [Zofran Odt 4 mg] 4 mg PO Q6H PRN PRN #10 tablet PRN Reason: Vomiting Cefdinir 300 mg PO BID #14 cap
[2024-07-20 13:09] VITALS: TEMP 97.2
[2024-07-20] MEDS ORDERED: Sodium Chloride 0.9% 1000 ML 1,000 ML ONE (13:10)
[2024-07-20] MEDS ORDERED: Zofran 4 MG/2 ML VIAL ONE (13:10)
[2024-07-20] MEDS ORDERED: PROTONIX 40 MG IV IV ONE (13:10)
[2024-07-20] MEDS: Sodium Chloride 0.9% 1000 ML 1,000 ML IV STA (13:12)
[2024-07-20] MEDS: PROTONIX 40 MG IV IV ONE (13:12)
[2024-07-20] MEDS: Zofran 4 MG/2 ML VIAL IV ONE (13:12)
[2024-07-20 13:19] LABS: Absolute Neutrophil Ct (ANC) 6.12 x10^3/uL (1.56-6.13); BASOPHIL % 0.7 % (0.1-1.2); Basophil (Absolute #) 0.06 x10^3/uL (0.01-0.08); Eosinophil % 1.1 % (0.7-5.8); Hematocrit 42.7 % (34.1-44.9); Hemoglobin 14.3 g/dL (11.2-15.7); IMMATURE GRAN # 0.04 x10^3u/L (0.001-0.031); IMMATURE GRAN % 0.4 % (0.001-0.429); Lymphocyte (Absolute #) 2.25 x10^3/uL (1.18-3.74); Lymphocytes % 24.4 % (19.3-51.7); Mean Cell Volume 86.8 fL (79.4-94.8); Mean Corpuscular Hemoglobin 29.1 pg (25.6-32.2); Mean Corpuscular Hgb Concent. 33.5 g/dL (32.2-35.5); Mean Platelet Volume 10.4 fL (9.4-12.3); Monocyte (Absolute #) 0.65 x10^3/uL (0.24-0.86); Neutrophil % 66.4 % (34.0-71.1); Platelet Count 328 x10^3/uL (182-369); Red Blood Count 4.92 x10^6/uL (3.93-5.22); Red Cell Distribution Width 13.2 % (11.7-14.4); White Blood Count 9.2 x10^3/uL (3.98-10.04)
[2024-07-20 13:25] LABS: Appearance Cloudy (Clear); Bacteria Many /HPF (None Seen); Bilirubin Moderate (Negative); Blood Trace (Negative); Epithelial Cells Many /HPF (None Seen); Glucose, Urine Negative (Negative); Ketones Trace (Negative); Leukocyte Esterase Large (Negative); Nitrite Negative (Negative); Protein,Urine Dip 30 (Negative); Specific Gravity 1.025 (1.005-1.030); WBC >100 /HPF (0-5)
[2024-07-20 13:33] LABS: ALBUMIN 4.9 g/dL (3.5-5.0); ANION GAP 14.2 MEQ/L (5-15); BILIRUBIN,TOTAL 0.9 mg/dL (0.2-1.3); Creatinine 1 1.33 mg/dL (0.52-1.04); EST GLOMERULAR FILTRATION RATE 49.4 ML/MIN; Potassium 3.9 mmol/L (3.5-5.1); Total Protein 8.1 g/dL (6.3-8.2)
[2024-07-20 13:58] LABS: INFLUENZA A NEGATIVE (NEGATIVE); INFLUENZA B NEGATIVE (NEGATIVE); RESPIRATORY SYNCTIAL VIRUS NEGATIVE (NEGATIVE); SARS-CoV-2 Xpert Express NEGATIVE (NEGATIVE)
[2024-07-20] MEDS ORDERED: ROCEPHIN 1 GM / 100 ML NaCl 1 GM/100 ML IVPB IV ONE (14:57)
[2024-07-20] MEDS: ROCEPHIN 1 GM / 100 ML NaCl 1 GM/100 ML IVPB IV ONE (14:58)
[2024-07-20 15:33] VITALS: BP 108/52; PULSE 63; RESP 13; O2SAT 98
== END 2024-07-20 15:41 | disposition home or self-care (01) ==
LOC: ED 12:13
DX: E86.0 Dehydration (principal); N39.0 Urinary tract infection, site not specified; R11.2 Nausea with vomiting, unspecified; E78.5 Hyperlipidemia, unspecified; I10 Essential (primary) hypertension; E11.9 Type 2 diabetes mellitus without complications; Z79.891 Long term (current) use of opiate analgesic; Z79.899 Other long term (current) drug therapy; Z72.0 Tobacco use
CPT/HCPCS: 0241U; 36415; 80053; 81001; 82150; 83690; 85025; 86308; 87086; 96360; 96365; 96374; 96375; 99285; 99284; J0696; J2405